=== PATIENT | male | born 1970 | race Caucasian/White ===

== ENCOUNTER 2020-08-15 06:45 | Outpatient (REF) | payer BC, SELFPAY ==
[2020-08-15 11:24] LABS: MANUAL DIFF FLAG NO
[2020-08-15 11:34] LABS: Basophils Percent Auto 0.3 % (0-2); Eosinophils Absolute Auto 0.3 X10*3/uL (0.0-0.4); Eosinophils Percent Auto 3.8 % (0-4); Hematocrit 43.3 % (42-52); Hemoglobin 14.6 g/dl (14.0-18.0); Imm Gran Abs Auto 0.02 X10*3/uL (0.00-0.03); Imm Gran Pct Auto 0.2 % (0.0-0.4); Lymphocytes Absolute Auto 2.4 X10*3/uL (1.2-4.9); Lymphocytes Percent Auto 26.9 % (20-40); Mean Corpuscular HGB Conc 33.7 g/dl (31.0-36.0); Mean Corpuscular Hemoglobin 28.4 pg (27.0-33.0); Mean Corpuscular Volume 84.2 fL (80-98); Mean Platelet Volume 11.5 fL (9.4-12.4); Monocytes Absolute Auto 0.7 X10*3/uL (0.1-1.2); Monocytes Percent Auto 8.2 % (2-11); Neutrophils Absolute Auto 5.3 X10*3/uL (2.0-8.3); Neutrophils Percent Auto 60.6 % (45-73); Platelet Count 199 X10*3/uL (160-400); Red Blood Count 5.14 X10*6/uL (4.60-5.80); Red Cell Distribution Width 12.9 % (11.0-16.0); White Blood Count 8.8 X10*3/uL (4.8-10.8)
[2020-08-15 11:40] LABS: Alanine Aminotransferase 29 U/L (0-40); Albumin Level 4.1 g/dL (3.5-5.0); Alkaline Phosphatase 95 U/L (39-117); Anion Gap 14 (12-20); Aspartate Amino Transferase 14 U/L (5-37); Bilirubin Total 0.7 mg/dL (0.0-1.0); Blood Urea Nitrogen 20 mg/dL (9-16); Calcium 8.2 mg/dL (8.4-10.2); Carbon Dioxide 28 mmol/L (22-29); Chloride 97 mmol/L (96-108); Cholesterol 126 mg/dL; Estimated Glomerular Filt Rate > 60; Glucose Fasting 199 mg/dL (60-99); HDL Cholesterol 36 mg/dL; LDL Cholesterol Calculated 66 mg/dl; Potassium 4.1 mmol/l (3.3-5.1); Sodium 135 mmol/L (135-145); Total Protein 6.3 g/dL (6.5-8.0); Triglycerides 124 mg/dL
[2020-08-15 11:42] LABS: Glucose Urine UA 250 MG/DL (NEG); Leukocyte Esterase Urine NEG (NEG); Nitrite Urine NEG (NEG); Specific Gravity - Urine >= 1.030 (1.005-1.025); Urine Blood NEG (NEG); Urine Ketones 5 MG/DL (NEG); Urine Protein TRACE MG/DL (NEG-TRACE)
[2020-08-15 11:49] LABS: Appearance Urine TURBID; Color Urine YELLOW
[2020-08-15 11:53] LABS: Estimated Average Glucose 235 mg/dL; Hemoglobin A1c % 9.8 %
[2020-08-15 11:56] LABS: Amorphous Sediment Urine 4+ /LPF; RBC Urine 0 /HPF (0); Squamous Epithelial Cell Urine TRACE /LPF; WBC Urine 0 /HPF (0-4)
[2020-08-15 12:04] LABS: Thyroid Stimulating Hormone 1.44 uIU/mL (0.32-4.0)
[2020-08-15 13:42] LABS: Creatinine Urine 235.21 mg/dL; Microalbum/Creatinine Ratio Ur 16.5 ug/mg cr
== END 2020-08-15 06:46 | disposition home or self-care (01) ==
LOC: HO.HMGCLDS 06:45
PROVIDERS: PCP Internal Medicine; Visit Provider Internal Medicine
DX: E11.9 Type 2 diabetes mellitus without complications (principal); K21.9 Gastro-esophageal reflux disease without esophagitis; E66.01 Morbid (severe) obesity due to excess calories; G47.33 Obstructive sleep apnea (adult) (pediatric)
CPT/HCPCS: 36415; 80053; 80061; 81001; 82043; 83036; 84443; 85025; 87086; 87147

== ENCOUNTER 2021-02-02 07:07 | Outpatient (REF) | payer BC, SELFPAY ==
[2021-02-02 11:54] LABS: Estimated Average Glucose 166 mg/dL; Hemoglobin A1c % 7.4 %
[2021-02-02 12:25] LABS: Alanine Aminotransferase 31 U/L (0-40); Albumin Level 4.4 g/dL (3.5-5.0); Alkaline Phosphatase 71 U/L (39-117); Anion Gap 14 (12-20); Aspartate Amino Transferase 19 U/L (5-37); Blood Urea Nitrogen 20 mg/dL (9-16); Carbon Dioxide 28 mmol/L (22-29); Chloride 98 mmol/L (96-108); Cholesterol 136 mg/dL; Estimated Glomerular Filt Rate > 60; Glucose Fasting 138 mg/dL (60-99); HDL Cholesterol 40 mg/dL; LDL Cholesterol Calculated 73 mg/dl; Potassium 4.3 mmol/L (3.3-5.1); Sodium 136 mmol/L (135-145); Total Protein 6.7 g/dL (6.5-8.0); Triglycerides 116 mg/dL
== END 2021-02-02 07:08 | disposition home or self-care (01) ==
LOC: HO.HMGCLDS 07:07
PROVIDERS: PCP Internal Medicine; Visit Provider Internal Medicine
DX: E11.9 Type 2 diabetes mellitus without complications (principal); E66.01 Morbid (severe) obesity due to excess calories
CPT/HCPCS: 36415; 80053; 80061; 83036

== ENCOUNTER 2021-06-12 07:08 | Outpatient (REF) | payer BC, SELFPAY ==
[2021-06-12 11:52] LABS: MANUAL DIFF FLAG NO
[2021-06-12 12:02] LABS: Basophils Percent Auto 0.4 % (0-2); Eosinophils Absolute Auto 0.3 X10*3/uL (0.0-0.4); Eosinophils Percent Auto 2.9 % (0-4); Hematocrit 44.8 % (42-52); Hemoglobin 15.2 g/dl (14.0-18.0); Imm Gran Abs Auto 0.03 X10*3/uL (0.00-0.03); Imm Gran Pct Auto 0.3 % (0.0-0.4); Lymphocytes Percent Auto 21.4 % (20-40); Mean Corpuscular HGB Conc 33.9 g/dl (31.0-36.0); Mean Corpuscular Hemoglobin 28.4 pg (27.0-33.0); Mean Corpuscular Volume 83.6 fL (80-98); Mean Platelet Volume 11.4 fL (9.4-12.4); Monocytes Absolute Auto 0.8 X10*3/uL (0.1-1.2); Monocytes Percent Auto 8.3 % (2-11); Neutrophils Absolute Auto 6.3 X10*3/uL (2.0-8.3); Neutrophils Percent Auto 66.7 % (45-73); Platelet Count 213 X10*3/uL (160-400); Red Blood Count 5.36 X10*6/uL (4.60-5.80); Red Cell Distribution Width 13.1 % (11.0-16.0); White Blood Count 9.5 X10*3/uL (4.8-10.8)
[2021-06-12 12:03] LABS: Appearance Urine CLOUDY; Color Urine YELLOW; Glucose Urine UA NEG (NEG); Leukocyte Esterase Urine NEG (NEG); Nitrite Urine NEG (NEG); Urine Blood NEG (NEG); Urine Ketones NEG (NEG); Urine Protein NEG (NEG-TRACE)
[2021-06-12 12:19] LABS: Estimated Average Glucose 180 mg/dL; Hemoglobin A1c % 7.9 %
[2021-06-12 12:20] LABS: Alanine Aminotransferase 27 U/L (0-40); Albumin Level 4.3 g/dL (3.5-5.0); Alkaline Phosphatase 76 U/L (39-117); Anion Gap 16 (12-20); Aspartate Amino Transferase 18 U/L (5-37); Bilirubin Total 0.9 mg/dL (0.0-1.0); Blood Urea Nitrogen 23 mg/dL (9-16); Calcium 8.9 mg/dL (8.4-10.2); Carbon Dioxide 25 mmol/L (22-29); Chloride 100 mmol/L (96-108); Cholesterol 151 mg/dL; Estimated Glomerular Filt Rate > 60; Glucose Fasting 163 mg/dL (60-99); HDL Cholesterol 38 mg/dL; LDL Cholesterol Calculated 82 mg/dl; Potassium 4.5 mmol/L (3.3-5.1); Sodium 136 mmol/L (135-145); Total Protein 6.8 g/dL (6.5-8.0); Triglycerides 156 mg/dL
[2021-06-12 12:26] LABS: Creatinine Urine 173.07 mg/dL; Microalbum/Creatinine Ratio Ur 19.6 ug/mg cr
[2021-06-12 12:41] LABS: Thyroid Stimulating Hormone 1.26 uIU/mL (0.32-4.0)
== END 2021-06-12 07:09 | disposition home or self-care (01) ==
LOC: HO.HMGCLDS 07:08
PROVIDERS: PCP Internal Medicine; Visit Provider Internal Medicine
DX: E11.9 Type 2 diabetes mellitus without complications (principal); E66.01 Morbid (severe) obesity due to excess calories; N20.0 Calculus of kidney
CPT/HCPCS: 36415; 80053; 80061; 81003; 82043; 83036; 84443; 85025

== ENCOUNTER → 2021-11-28 14:57 | Outpatient (BNVA) | payer BC, SELFPAY | PROVIDERS: PCP Internal Medicine; Visit Provider Internal Medicine | DX: G47.33 Obstructive sleep apnea (adult) (pediatric) (principal); E66.01 Morbid (severe) obesity due to excess calories; Z79.899 Other long term (current) drug therapy | CPT/HCPCS: 99202 ==

== ENCOUNTER 2021-12-24 09:40 | Outpatient (REF) | payer BC, SELFPAY ==
[2021-12-24 11:18] LABS: MANUAL DIFF FLAG NO
[2021-12-24 11:21] LABS: Appearance Urine HAZY; Color Urine YELLOW; Glucose Urine UA NEG (NEG); Leukocyte Esterase Urine NEG (NEG); Nitrite Urine NEG (NEG); Urine Blood NEG (NEG); Urine Ketones NEG (NEG); Urine Protein NEG (NEG-TRACE)
[2021-12-24 11:22] LABS: Basophils Absolute Auto 0.1 X10*3/uL (0.0-0.2); Basophils Percent Auto 0.5 % (0-2); Eosinophils Absolute Auto 0.3 X10*3/uL (0.0-0.4); Eosinophils Percent Auto 3.1 % (0-4); Hematocrit 44.6 % (42.0-52.0); Hemoglobin 15.2 g/dl (14.0-18.0); Imm Gran Abs Auto 0.04 X10*3/uL (0.00-0.03); Imm Gran Pct Auto 0.4 % (0.0-0.4); Lymphocytes Absolute Auto 1.9 X10*3/uL (1.2-4.9); Lymphocytes Percent Auto 17.1 % (20-40); Mean Corpuscular HGB Conc 34.1 g/dl (31.0-36.0); Mean Corpuscular Hemoglobin 28.4 pg (27.0-33.0); Mean Corpuscular Volume 83.4 fL (80.0-98.0); Mean Platelet Volume 11.9 fL (9.4-12.4); Monocytes Absolute Auto 0.7 X10*3/uL (0.1-1.2); Monocytes Percent Auto 6.7 % (2-11); Neutrophils Absolute Auto 7.8 x10*3/uL (2.0-8.3); Neutrophils Percent Auto 72.2 % (45-73); Platelet Count 207 X10*3/uL (160-400); Red Blood Count 5.35 X10*6/uL (4.60-5.80); Red Cell Distribution Width 13.2 % (11.0-16.0); White Blood Count 10.8 X10*3/uL (4.8-10.8)
[2021-12-24 11:36] LABS: RBC Urine 0 /HPF (0); WBC Urine 0 /HPF (0-4)
[2021-12-24 11:42] LABS: Creatinine Urine 127.92 mg/dL; Microalbum/Creatinine Ratio Ur 37.5 ug/mg cr
[2021-12-24 11:49] LABS: Alanine Aminotransferase 31 U/L (0-40); Albumin Level 4.4 g/dL (3.5-5.0); Alkaline Phosphatase 68 U/L (39-117); Anion Gap 14 (12-20); Aspartate Amino Transferase 18 U/L (5-37); Blood Urea Nitrogen 26 mg/dL (9-16); Calcium 9.5 mg/dL (8.4-10.2); Carbon Dioxide 27 mmol/L (22-29); Chloride 99 mmol/L (96-108); Cholesterol 157 mg/dL; Estimated Glomerular Filt Rate > 60; Glucose Fasting 190 mg/dL (60-99); HDL Cholesterol 40 mg/dL; LDL Cholesterol Calculated 96 mg/dl; Potassium 4.7 mmol/L (3.3-5.1); Sodium 135 mmol/L (135-145); Total Protein 6.8 g/dL (6.5-8.0); Triglycerides 106 mg/dL
[2021-12-24 11:57] LABS: Thyroid Stimulating Hormone 1.29 uIU/mL (0.32-4.0); Vitamin D 25-OH Total 41.8 ng/mL (>30)
[2021-12-24 11:58] LABS: Estimated Average Glucose 177 mg/dL; Hemoglobin A1c % 7.8 %
== END 2021-12-24 09:41 | disposition home or self-care (01) ==
LOC: HO.HMGCLDS 09:40
PROVIDERS: PCP Internal Medicine; Visit Provider Internal Medicine
DX: E11.9 Type 2 diabetes mellitus without complications (principal); G47.33 Obstructive sleep apnea (adult) (pediatric); E66.01 Morbid (severe) obesity due to excess calories; K21.9 Gastro-esophageal reflux disease without esophagitis
CPT/HCPCS: 36415; 80053; 80061; 81001; 82043; 82306; 83036; 84443; 85025

== ENCOUNTER → 2022-03-14 09:31 | Outpatient (BNVA) | payer BC, SELFPAY | PROVIDERS: PCP Internal Medicine; Referring Provider Internal Medicine; Visit Provider Internal Medicine Cardiovascular Disease | DX: R00.2 Palpitations (principal); I47.1 Supraventricular tachycardia; I10 Essential (primary) hypertension | CPT/HCPCS: 93005 ==

== ENCOUNTER 2022-03-26 10:06 | Outpatient (REF) | payer BC, SELFPAY ==
[2022-03-26 11:36] LABS: Alanine Aminotransferase 27 U/L (0-40); Albumin Level 4.6 g/dL (3.5-5.0); Alkaline Phosphatase 80 U/L (39-117); Anion Gap 15 (12-20); Aspartate Amino Transferase 18 U/L (5-37); Bilirubin Total 1.2 mg/dL (0.0-1.0); Blood Urea Nitrogen 20 mg/dL (9-16); Calcium 9.7 mg/dL (8.4-10.2); Carbon Dioxide 28 mmol/L (22-29); Chloride 101 mmol/L (96-108); Cholesterol 137 mg/dL; Estimated Glomerular Filt Rate > 60; Glucose Fasting 163 mg/dL (60-99); HDL Cholesterol 41 mg/dL; LDL Cholesterol Calculated 81 mg/dl; Potassium 4.6 mmol/L (3.3-5.1); Sodium 139 mmol/L (135-145); Total Protein 7.2 g/dL (6.5-8.0); Triglycerides 79 mg/dL
[2022-03-26 11:37] LABS: Estimated Average Glucose 154 mg/dL
[2022-03-26 11:59] LABS: Creatinine Urine 177.41 mg/dL; Microalbum/Creatinine Ratio Ur 9.5 ug/mg cr
[2022-03-26 12:00] LABS: Prostate Specific Antigen 0.31 ng/mL (<0.05-4.0)
== END 2022-03-26 10:07 | disposition home or self-care (01) ==
LOC: HO.HMGCLDS 10:06
PROVIDERS: PCP Internal Medicine; Visit Provider Urology
DX: E11.9 Type 2 diabetes mellitus without complications (principal); Z12.5 Encounter for screening for malignant neoplasm of prostate
CPT/HCPCS: 36415; 80053; 80061; 82043; 83036; 84153

== ENCOUNTER → 2022-03-27 10:05 | Outpatient (REF) | payer BC, SELFPAY | LOC: HO.SL 10:05 | PROVIDERS: PCP Internal Medicine; Visit Provider Internal Medicine | DX: E66.01 Morbid (severe) obesity due to excess calories (principal); G47.33 Obstructive sleep apnea (adult) (pediatric) | CPT/HCPCS: 95806 ==

== ENCOUNTER → 2022-04-24 12:55 | Outpatient (REF) | payer BC, SELFPAY ==
--- NOTE | 2022-04-24 12:58 | HM_ITS ---
REQUESTING PROVIDER: Myself. REASON FOR TEST: Supraventricular tachycardia. INTERPRETATION: The patient was hooked up to cardiac event monitor from 04/24/2022 to 05/24/2022 for a total period of 30 days. FINDINGS: Baseline rhythm was normal sinus with heart rate varying from 84 beats per minute to 114 beats per minute. There were episodes of PACs noted. Also short episodes of supraventricular tachycardia noted with fastest heart rate of 181 beats per minute. Also isolated PVCs noted and also one episode of 17-beat of nonsustained ventricular tachycardia, monomorphic at 170 beats per minute. The patient reported multiple episodes of fluttering or chest discomfort, which correlated to either with PVCs or PACs or short run of PSVT or nonsustained ventricular tachycardia. CONCLUSION: Event monitor report is remarkable for: 1. Baseline normal sinus rhythm. 2. Occasional isolated PACs with short runs of supraventricular tachycardia. 3. Occasional PVCs with 117-beat run of nonsustained VT at 170 beats per minute. 4. The patient reported symptoms of palpitations/fluttering as well as chest pain correlated with arrhythmias. Donaldo Aguilar MD NRS/MODL / [id number]
--- NOTE | 2022-04-24 12:58 | CA_ITS ---
Transthoracic Echocardiogram Patient (Last, First, Middle): Danny King D Gender: Male Date of : 1970 Age: 52 Procedure Date: 04/24/2022 Procedure Type: Transthoracic Echocardiogram Location: OP Height: 177.8 cm Weight: 142.88 kg BSA: 2.53 m2 Heart Rate: bpm BP: 102 / 68 mmHg Laboratory Associate: TO Referring MD: Donaldo Aguilar MD Skin Lifter Bacon: Donaldo Aguilar MD Symptoms: R00.2 - Palpitations Study Quality: Fair/Contrast ECG Rhythm: Sinus Conclusions: - Essentially normal study Findings Procedure Information Contrast agent, definity, is being given per protocol without apparent complications. Left Ventricle Normal left ventricular size, thickness, and systolic function. The visually estimated ejection fraction is between 60-65%. Spectral Doppler is indicative of a normal filling pattern. Right Ventricle Normal right ventricular cavity size and systolic function. Atria Both atria are normal in size. There is lipomatous hypertrophy of the interatrial septum. Interatrial shunt cannot be excluded. Aortic Valve Normal aortic valve structure and function. There is no aortic valve stenosis. There is no aortic valve regurgitation. Mitral Valve Normal mitral valve structure and function. There is trace mitral valve regurgitation. There is no mitral valve stenosis. Pulmonic Valve The pulmonic valve was not well visualized. Tricuspid Valve Likely normal tricuspid valve structure and function. There is trace tricuspid valve regurgitation. The right ventricular systolic pressure is normal. The right ventricular systolic pressure is 16 mmHg. Normal right atrial pressure. There is no evidence of pulmonary hypertension. Great Vessels All visible segments of the aorta are normal in size. The pulmonary artery was not well visualized. Venous The inferior vena cava is normal in size and collapses greater than 50% with inspiration. Pericardium/Pleural There is no evidence of pericardial effusion. Prior Study Comparison No significant change compared to prior study dated: 08/10/2019. Recommendations, Care & Conclusions Recommend contrast study to evaluate intracardiac shunting. Measurements 2D Linear Measurements IVSd: 1.02 0.6-0.9/0.6-1.0 cm LVIDd: 4.73 3.9-5.3/4.2-5.9 cm LVIDd Index: 1.87 2.4-3.2/2.2-3.1 cm/m2 LVIDs: 3.36 2.0-3.6 cm LVPWd: 1.00 0.7-1.1 cm LA Diam: 4.50 2.7-3.8/3.0-4.0 cm LAIDs Index: 1.78 1.5-2.3 cm/m2 LV Mass: 209.51 67-162/88-224 g LV Mass Index: 82.81 43-95/49-115 g/m2 LVOT Diam: 2.30 3.0+(-)1.3 cm 2D Systolic Function EF 4C: 67.40 >55% EF 2C: 60.70 >55% EF BiP: 63.60 >55% Mitral Valve MV Pk E: 0.96 MV PK A: 0.60 MV Decel Time: 252.00 E/A: 1.60 E'Lateral: 14.50 E'Medial: 11.20 E/E' Med: 8.50 E/E' Lat: 6.60 PHT: 74.00 MVA PHT: 2.97 Decel [place]: 3.80 Aortic Valve AoV Pk Amos: 1.45 AoV Mn Amos: 0.94 AoV VTI: 0.25 AoV Pk Grad: 8.00 Aov Mn Grad: 4.00 LALIT Cont.VTI: 3.76 LVOT LVOT Pk Amos: 1.42 LVOT Mn Amos: 0.80 LVOT VTI: 0.23 LVOT Pk Grad: 8.00 LVOT Mn Grad: 3.00 LVOT Diam: 2.30 LVOT Area: 4.15 Diastolic Function MV Pk E: 0.96 MV Pk A: 0.60 E/A: 1.60 E'Medial: 11.20 E/E' Med: 8.50 E' Laterial: 14.50 E/E' Lat: 6.60 Right Ventricle TAPSE (mm): 24.40 TVS' Amos: 16.90 Tricuspid Valve TR Pk Amos: 1.81 TR Pk Grad: 13.00 RA Press: 3.00 RVSP: 16.00 Great Vessels Aorta Sinus of Valsalva: 3.55 2.0-3.[address] [place]: 2.87 1.7-3.4 cm Ao Asc: 3.40 2.1-3.4 cm Updated in Other Vendor System with Status of Final Donaldo Aguilar MD electronically signed on 04/25/2022 9:07:13 AM with status of Final
== END ==
LOC: HO.CARD 12:55
PROVIDERS: PCP Internal Medicine; Visit Provider Internal Medicine Cardiovascular Disease
DX: R00.2 Palpitations (principal); I47.1 Supraventricular tachycardia
CPT/HCPCS: 93270; 93306; Q9957

== ENCOUNTER → 2022-05-23 09:25 | Outpatient (REF) | payer BC, SELFPAY ==
--- NOTE | ~2022-05-23 | NM_ITS ---
Exercise Myocardial perfusion study Indication: Ventricular tachycardia to evaluate for myocardial ischemia Technique: The patient was brought in for an exercise perfusion study on 05/23/2022. Patient performed exercise as per Jatinder protocol and was injected 45 mCi of sestamibi was given intravenously one target HR was achieved. Images were obtained using the SPECT gamma camera interlaced with the gating device. Images were obtained in supine position. Resting perfusion study was performed on 05/27/2022. Patient was administered 45 mCi of sestamibi intravenously at rest. Images were then obtained in supine position. Images obtained with and without CT attenuation. Total DLP 134 mGy-cm. Images were processed with the software and compared side to side in short axis, horizontal long axis and vertical long axis views. Findings: The stress perfusion study showed non attenuated images show mildly reduced uptake in the basal inferior wall of the LV function. Remainder of the LV myocardium normally perfused. Attenuation corrected images show minimal thinning of the apex of the LV myocardium.. The gated study shows normal LV systolic function with calculated LVEF of 70%. LV cavity is normal in in size. The gated study shows normal systolic wall thickening and contraction of all segments. There is no transient ischemic dilation. Resting study shows non attenuated images show moderately reduced uptake in the basal inferior and mildly reduced uptake in the mid inferior wall of the LV myocardium. Attenuation corrected images show minimal thinning of the apex of the LV myocardium.. Gating at rest reveals normal systolic wall motion with ejection fraction at 63%. The findings are consistent with normal myocardial perfusion. NM/NM cardiolite stress test Impression: 1. Normal myocardial perfusion 2. Gated LVEF is 70% 3. Transient ischemic dilatation not present Stress EKG is equivocal for ischemia
--- NOTE | 2022-05-23 09:27 | CA_ITS ---
Acquisition Time: 2022-05-23 09:31:53 Total Exercise Time: 00:08:14 Test Indications: NSVT Medications: SEE CHART Protocol: TOBIAS Max HR: 150 BPM 88% of Pred: 170 BPM Max BP: 166/068 mmHG Max Work Load: 10.1 METS Exercise stress test with exercise 8 min 14 sec of Tobias protocol, with mild sob, no chest discomfort, with isolated PAC, with normotensive response to exercise, with borderline EKG changes suggesting possible ischemia: T inversion inferiorly V4-V6 with borderline ST depression/ abnormality. Nuclear images pending. Test reviewed with Dr Aguilar Referred By: Donaldo Aguilar Overread By: FRANCISCA CASILLAS
== END ==
LOC: HO.CARD 09:25
PROVIDERS: PCP Internal Medicine; Visit Provider Internal Medicine Cardiovascular Disease
DX: I47.2 Ventricular tachycardia (principal)
CPT/HCPCS: 78452; 93017; A9500

== ENCOUNTER 2022-07-01 07:52 | Outpatient (REF) | payer BC, SELFPAY ==
[2022-07-01 11:45] LABS: Estimated Average Glucose 146 mg/dL; Hemoglobin A1c % 6.7 %
[2022-07-01 12:20] LABS: Alanine Aminotransferase 27 U/L (0-40); Albumin Level 4.3 g/dL (3.5-5.0); Alkaline Phosphatase 89 U/L (39-117); Anion Gap 16 (12-20); Aspartate Amino Transferase 19 U/L (5-37); Bilirubin Total 1.2 mg/dL (0.0-1.0); Blood Urea Nitrogen 16 mg/dL (9-16); Calcium 9.1 mg/dL (8.4-10.2); Carbon Dioxide 29 mmol/L (22-29); Chloride 99 mmol/L (96-108); Cholesterol 124 mg/dL; Estimated Glomerular Filt Rate > 60; Glucose Fasting 124 mg/dL (60-99); HDL Cholesterol 38 mg/dL; LDL Cholesterol Calculated 62 mg/dl; Potassium 4.8 mmol/L (3.3-5.1); Sodium 139 mmol/L (135-145); Total Protein 6.6 g/dL (6.5-8.0); Triglycerides 123 mg/dL
== END 2022-07-01 07:53 | disposition home or self-care (01) ==
LOC: HO.HMGCLDS 07:52
PROVIDERS: PCP Internal Medicine; Visit Provider Internal Medicine
DX: E11.9 Type 2 diabetes mellitus without complications (principal); E66.01 Morbid (severe) obesity due to excess calories
CPT/HCPCS: 36415; 80053; 80061; 83036

== ENCOUNTER → 2022-09-18 11:10 | Outpatient (BNVA) | payer BC, SELFPAY | PROVIDERS: PCP Internal Medicine; Visit Provider Internal Medicine | DX: Z13.89 Encounter for screening for other disorder (principal) ==

== ENCOUNTER 2022-12-05 13:43 | Outpatient (REF) | payer BC, SELFPAY ==
[2022-12-05 15:07] LABS: Cholesterol 116 mg/dL; HDL Cholesterol 38 mg/dL; LDL Cholesterol Calculated 64 mg/dl; Triglycerides 73 mg/dL
[2022-12-06 11:35] LABS: Anion Gap 22 (12-20); Blood Urea Nitrogen 24 mg/dL (9-16); Calcium 9.3 mg/dL (8.4-10.2); Carbon Dioxide 22 mmol/L (22-29); Chloride 100 mmol/L (96-108); Estimated Glomerular Filt Rate 57; Glucose Random 133 mg/dL (60-115); Potassium 4.9 mmol/L (3.3-5.1); Sodium 139 mmol/L (135-145)
== END 2022-12-05 13:44 | disposition home or self-care (01) ==
LOC: HO.LAB 13:43
PROVIDERS: PCP Internal Medicine; Visit Provider Internal Medicine Cardiovascular Disease
DX: E78.00 Pure hypercholesterolemia, unspecified (principal)
CPT/HCPCS: 36415; 80048; 80061

== ENCOUNTER → 2023-01-21 10:48 | Outpatient (BNVA) | payer BC, SELFPAY | PROVIDERS: PCP Internal Medicine; Visit Provider Internal Medicine ==

== ENCOUNTER 2023-08-18 15:36 | Outpatient (AMB) | payer BC, SELFPAY ==
--- NOTE | 2023-08-18 15:41 | A.OFFVIS_ITS ---
Intake Vital Signs 08/18/23 15:42 Height 5 ft 10 in Weight 316 lb BMI 45.3 BP 102/50 L Blood Pressure Location Lt brachial Position Sitting Pulse 79 Pulse Source Pulse Oximeter Pulse Oximetry (%) 98 Oxygen Delivery Method Room Air Intake Visit Reasons: Obstructive sleep apnea Intake Note: pt is here for follow up of JOHN and is doing well with supplies. Inspector Type Required: No Allergies No Known Allergies Allergy (Verified 08/18/23 15:58) Medication List - Last Reconciled 08/18/23 by Nesha Smith MD atorvastatin 80 mg PO DAILY blood sugar diagnostic ([employer] Ultra Test strips) As directed dulaglutide (Trulicity) mg subcut fluticasone propionate 50 mcg/actuation 2 sprays intranasal DAILY PRN lisinopril 10 mg PO DAILY metformin 1,000 mg PO BID metoprolol succinate ER 50 mg PO DAILY pantoprazole 40 mg PO DAILY tamsulosin 0.4 mg PO DAILY Do you need a note to return to daycare/school/sports/work: No HPI Obstructive sleep apnea HPI Details 53 YEARS OLD GENTLEMAN WITH MORBID OBESI TY AND DIAGNOSIS OF OBSTRUCTIVE SLEEP APNEA, COMES FOR HIS ROUTINE FOLLOW-UP. DOING VERY WELL WITH HIS THE CPAP, USES EVERY NIGHT EXCEPT WHEN HE FORGETS TO PUT IT ON. HE IS VERY HAPPY WITH THE CPAP USAGE, AND GETS GOOD SLEEP. WEIGHT WEBER THERE HAS BEEN NO PROGRESS RATHER HE HAS PUT ON SOME LB AGAIN. HE HAS MILD NASAL CONGESTION OFF AND ON WHICH IS CONTROLLED WITH USE OF FLONASE PFSH Medical History (Updated 08/18/23 @ 16:05 by Nesha Smith MD) Allergic rhinitis Diabetes mellitus HTN (hypertension) JOHN (obstructive sleep apnea) Morbid obesity Surgical History History of tonsillectomy History of ankle surgery History of nephrectomy, right S/P right rotator cuff repair Family History Father Enlarged heart COPD (chronic obstructive pulmonary disease) Pacemaker Cardiac defibrillator in place Brother SVT (supraventricular tachycardia) Mother Hypercholesteremia Social History Alcohol intake: current Alcohol intake frequency: a few times a month Patient Tobacco Use Status: Never used Tobacco Review of Systems Const All systems reviewed & are unremarkable except as noted in HPI and below Reports snoring Eyes Reports no additional complaints ENT Reports no additional complaints Card Denies chest pain, Denies irregular heart rhythm and Denies leg edema Resp Denies cough, Reports snoring and Denies wheezing GI Reports heartburn (GERD symptoms controlled with medicine) Reports other (Symptoms of BPH) Musc Reports no additional complaints Skin/Breast Reports system reviewed and no additional complaints, except as documented Neuro Reports no additional complaints Psych Reports no additional complaints Endo Reports no additional complaints Aller/Immun Denies wheezing Physical Exam Vital Signs: Last Vital Signs Pulse 79 08/18/23 15:42 BP 102/50 L 08/18/23 15:42 Pulse Ox 98 08/18/23 15:42 Oxygen Delivery Method Room Air 08/18/23 15:42 BMI result Body Mass Index 45.3 Const Other: Still grossly obese but has lost 30 lb since November of this year General: healthy appearing (Except for being overweight), comfortable, no acute distress, alert and awake Orientation/consciousness: patient oriented x3 HEENT Head: Yes normal to inspection General nose exam: No nasal polyps present and No nasal discharge present Face and sinus: Yes sinuses nontender Mouth: oropharynx normal Throat: No posterior oropharynx normal (Oropharynx is crowded, Mallampati class 4) Eyes General: appearance normal, both eyes and all related structures Neck Neck: Yes normal visual inspection, Yes no lymphadenopathy, Yes trachea midline, Yes no JVD and Yes other (Neck circumference 19 in) Thyroid: Thyroid normal Chest Chest palpation & inspection: normal inspection of the chest, normal palpation of entire chest wall and no tenderness Resp Effort & Inspection: normal respiratory effort Auscultation: clear to auscultation bilaterally, no crackles, no rhonchi and no wheezes Percussion: percussion normal Cardio Palpation: PMI not normal (Not palpable) Rate: regular rate Rhythm: regular rhythm Heart sounds: no gallops and no murmurs Peripheral pulses: Peripheral pulses 2+ throughout GI Palpation (GI): Soft to palpation, nontender, No hepatosplenomegaly present, no masses and Other GI palpation findings present (Abdomen is obese and protuberant) Auscultation: normal bowel sounds Back/Spine/Pelvis Thoracic/Lumbar Spine: thoracic and lumbar spine normal to inspection Skin General skin exam: no rashes or lesions noted Neuro General: patient oriented x3 and no focal motor deficits Cranial nerves: Yes CN's II-XII intact bilaterally Extrem General: Yes normal to inspection, Yes no clubbing, cyanosis or edema and Yes no calf tenderness Psych Appearance: grossly normal and well kempt Speech and movement: Normal speech and movement present Results Reviewed Results Reviewed: COMPLIANCE REPORT FOR THE LAST 90 DAYS IS REVIEWED. USED 76/90 DAYS, 84%. AVERAGE USE IT PER NIGHT 5 HOURS 6 MINUTE. PRESSURE USED IS MOSTLY 7 CM TO 8.7 CM. NO AIR LEAK. RESIDUAL AHI 0.8 Assessment & Plan Assessment & Plan (1) Morbid obesity: Comment: Chronically obese, runs in his family. Has not been in any weight management program. I discussed with him the need for losing more weight, He told me that he is trying to restrict his diet , and walking . Has lost about 36 lb of weight in the last 12 months, BUT NOW SINCE HIS LAST VISIT HE HAS GAINED ABOUT 14 LB. AGAIN HAD A DETAILED DISCUSSION WITH HIM ABOUT THE FOODS AND ALSO EXERCISE. Code(s): E66.01 - Morbid (severe) obesity due to excess calories Plan: as above (2) JOHN (obstructive sleep apnea): Comment: The diagnosis of obstructive sleep apnea was reconfirmed. He does use the CPAP device, with nasal mask, and pressure setting of 6-20 cm. ( using mostly 8.9 cms ) He is very compliant and happy about the use of CPAP. Code(s): G47.33 - Obstructive sleep apnea (adult) (pediatric) Plan: I stressed that he should use it every night , and make sure that his CPAP is on before he falls asleep. (3) Allergic rhinitis: Comment: Mild intermittent nasal congestion Code(s): J30.9 - Allergic rhinitis, unspecified Plan: Use Flonase nasal spray in each nostril once a day. Coding Level of Care Code Est Pt Level 3 (22316) Diagnoses Morbid obesity E66.01 JOHN (obstructive sleep apnea) G47.33 Allergic rhinitis J30.9
[2023-08-18 15:42] VITALS: BP 102/50; PULSE 79; O2SAT 98; BMI 45.3
== END 2023-08-18 16:00 | disposition home or self-care (01) ==
PROVIDERS: PCP Internal Medicine; Visit Provider Internal Medicine
DX: E66.01 Morbid (severe) obesity due to excess calories (principal); G47.33 Obstructive sleep apnea (adult) (pediatric); J30.9 Allergic rhinitis, unspecified
CPT/HCPCS: 99213

== ENCOUNTER → 2023-08-18 15:36 | Outpatient (BNVA) | payer BC, SELFPAY | PROVIDERS: PCP Internal Medicine; Visit Provider Internal Medicine ==

== ENCOUNTER 2023-09-05 06:02 | Outpatient (REF) | payer BC, SELFPAY ==
[2023-09-05 11:40] LABS: MANUAL DIFF FLAG NO
[2023-09-05 11:43] LABS: Basophils Percent Auto 0.5 % (0-2); Eosinophils Absolute Auto 0.4 X10*3/uL (0.0-0.4); Eosinophils Percent Auto 4.6 % (0-4); Hematocrit 44.9 % (42.0-52.0); Imm Gran Abs Auto 0.02 X10*3/uL (0.00-0.03); Imm Gran Pct Auto 0.2 % (0.0-0.4); Lymphocytes Absolute Auto 1.8 X10*3/uL (1.2-4.9); Lymphocytes Percent Auto 22.7 % (20-40); Mean Corpuscular HGB Conc 33.4 g/dl (31.0-36.0); Mean Corpuscular Hemoglobin 28.3 pg (27.0-33.0); Mean Corpuscular Volume 84.7 fL (80.0-98.0); Mean Platelet Volume 11.5 fL (9.4-12.4); Monocytes Absolute Auto 0.6 X10*3/uL (0.1-1.2); Monocytes Percent Auto 7.7 % (2-11); Neutrophils Absolute Auto 5.2 x10*3/uL (2.0-8.3); Neutrophils Percent Auto 64.3 % (45-73); Platelet Count 191 X10*3/uL (160-400); Red Cell Distribution Width 13.1 % (11.0-16.0); White Blood Count 8.1 X10*3/uL (4.8-10.8)
[2023-09-05 12:07] LABS: Appearance Urine Turbid; Color Urine Yellow; Glucose Urine UA Negative (Negative); Leukocyte Esterase Urine Trace (Negative); Nitrite Urine Negative (Negative); Specific Gravity - Urine 1.025 (1.005-1.025); UMIC TRIGGER UA YES; Urine Blood Negative (Negative); Urine Ketones Negative (Negative); Urine Protein Negative (Neg-Trace)
[2023-09-05 12:10] LABS: Bacteria Urine None Seen (None Seen); Estimated Average Glucose 131 mg/dL; Hemoglobin A1c % 6.2 % (<6.0); Hyaline Casts Urine 0-2 /LPF (0-2); RBC Urine 0-2 /HPF (0-2); WBC Urine 0-5 /HPF (0-5)
[2023-09-05 12:11] LABS: Alanine Aminotransferase 23 U/L (0-40); Albumin Level 4.1 g/dL (3.5-5.0); Alkaline Phosphatase 99 U/L (39-117); Anion Gap 11 (12-20); Aspartate Amino Transferase 19 U/L (5-37); Bilirubin Total 0.7 mg/dL (0.0-1.0); Blood Urea Nitrogen 22 mg/dL (9-16); Calcium 8.9 mg/dL (8.4-10.2); Carbon Dioxide 27 mmol/L (22-29); Chloride 102 mmol/L (96-108); Cholesterol 116 mg/dL (<200); Estimated Glomerular Filt Rate > 60; Glucose Fasting 141 mg/dL (60-99); HDL Cholesterol 35 mg/dL (>40); LDL Cholesterol Calculated 64 mg/dL (<100); Magnesium 1.9 mg/dL (1.6-2.6); Potassium 4.1 mmol/L (3.3-5.1); Sodium 136 mmol/L (135-145); Total Protein 6.8 g/dL (6.5-8.0); Triglycerides 88 mg/dL (<150)
[2023-09-05 12:18] LABS: PSA,Total (Free>4and<10) 0.35 ng/mL (0.00-4.00)
[2023-09-05 12:31] LABS: Thyroid Stimulating Hormone 0.88 uIU/mL (0.32-4.0); Vitamin D 25-OH Total 75.6 ng/mL (>30)
[2023-09-05 12:43] LABS: Creatinine Urine 163.81 mg/dL; Microalbum/Creatinine Ratio Ur 6.7 ug/mg cr (<30)
== END 2023-09-05 06:03 | disposition home or self-care (01) ==
LOC: HO.HMGCLDS 06:02
PROVIDERS: PCP Internal Medicine; Visit Provider Internal Medicine
DX: Z00.00 Encounter for general adult medical examination without abnormal findings (principal); Z12.5 Encounter for screening for malignant neoplasm of prostate; E66.01 Morbid (severe) obesity due to excess calories; E11.9 Type 2 diabetes mellitus without complications
CPT/HCPCS: 36415; 80053; 80061; 81001; 82043; 82306; 82570; 83036; 83735; 84153; 84443; 85025

== ENCOUNTER 2024-01-21 14:56 | Outpatient (AMB) | payer BC, SELFPAY ==
[2024-01-21 15:06] VITALS: BP 110/62; PULSE 70; O2SAT 97; BMI 46.2
--- NOTE | 2024-01-21 15:06 | MHC.OFFVIS ---
Vital Signs 01/21/24 15:06 Height 5 ft 10 in Weight 321 lb 13.998 oz BMI 46.2 BP 110/62 Blood Pressure Location Lt brachial Pulse 70 Pulse Source Pulse Oximeter Pulse Oximetry (%) 97 Oxygen Delivery Method Room Air Intake Visit Reasons: juan jose Intake Note: pt is here for juan jose, only missing on days when he falls asleep early. Hand Glove Cleaner Required: No Allergies No Known Allergies Allergy (Verified 01/21/24 15:33) Medication List - Last Reconciled 01/21/24 by Nesha Smith MD atorvastatin 80 mg PO DAILY blood sugar diagnostic ([employer] Ultra Test strips) As directed dulaglutide (Trulicity) mg subcut fluticasone propionate 50 mcg/actuation 2 sprays intranasal DAILY PRN lisinopril 10 mg PO DAILY metformin 1,000 mg PO BID metoprolol succinate ER 50 mg PO DAILY pantoprazole 40 mg PO DAILY tamsulosin 0.4 mg PO DAILY Do you need a note to return to daycare/school/sports/work: No HPI HPI juan jose: Details: Danny 53 years old gentleman is morbidly obese, and confirmed case of obstructive sleep apnea. He uses CPAP very regularly every night, He has missed using only on 2 nights when he went to sleep before putting on the mask. He loves his CPAP, does not get good sleep without it. No issue with the use of the CPAP . Weight brantley he has not made any progress, but is fully aware of the need to lose weight. * his brother is a dispatcher ship pilot and also uses CPAP regularly. [facility] Medical History Allergic rhinitis Diabetes mellitus HTN (hypertension) JUAN JOSE (obstructive sleep apnea) Morbid obesity Surgical History History of tonsillectomy History of ankle surgery History of nephrectomy, right S/P right rotator cuff repair Family History Father Enlarged heart COPD (chronic obstructive pulmonary disease) Pacemaker Cardiac defibrillator in place Brother SVT (supraventricular tachycardia) Mother Hypercholesteremia Social History Alcohol intake: current Alcohol intake frequency: a few times a month Patient Tobacco Use Status: Never used Tobacco Review of Systems Const All systems reviewed & are unremarkable except as noted in HPI and below Reports snoring Eyes Reports no additional complaints ENT Reports no additional complaints Card Denies chest pain, Denies irregular heart rhythm and Denies leg edema Resp Denies cough, Reports snoring and Denies wheezing GI Reports heartburn (GERD symptoms controlled with medicine) Reports other (Symptoms of BPH) Musc Reports no additional complaints Skin/Breast Reports system reviewed and no additional complaints, except as documented Neuro Reports no additional complaints Psych Reports no additional complaints Endo Reports no additional complaints Aller/Immun Denies wheezing Physical Exam Vital Signs: Last Vital Signs Pulse 70 01/21/24 15:06 BP 110/62 01/21/24 15:06 Pulse Ox 97 01/21/24 15:06 Oxygen Delivery Method Room Air 01/21/24 15:06 BMI result Body Mass Index 46.2 Const Other: Still grossly obese but has lost 30 lb since November of this year General: healthy appearing (Except for being overweight), comfortable, no acute distress, alert and awake Orientation/consciousness: patient oriented x3 HEENT Head: Yes normal to inspection General nose exam: No nasal polyps present and No nasal discharge present Face and sinus: Yes sinuses nontender Mouth: oropharynx normal Throat: No posterior oropharynx normal (Oropharynx is crowded, Mallampati class 4) Eyes General: appearance normal, both eyes and all related structures Neck Neck: Yes normal visual inspection, Yes no lymphadenopathy, Yes trachea midline, Yes no JVD and Yes other (Neck circumference 19 in) Thyroid: Thyroid normal Chest Chest palpation & inspection: normal inspection of the chest, normal palpation of entire chest wall and no tenderness Resp Effort & Inspection: normal respiratory effort Auscultation: clear to auscultation bilaterally, no crackles, no rhonchi and no wheezes Percussion: percussion normal Cardio Palpation: PMI not normal (Not palpable) Rate: regular rate Rhythm: regular rhythm Heart sounds: no gallops and no murmurs Peripheral pulses: Peripheral pulses 2+ throughout GI Palpation (GI): Soft to palpation, nontender, No hepatosplenomegaly present, no masses and Other GI palpation findings present (Abdomen is obese and protuberant) Auscultation: normal bowel sounds Back/Spine/Pelvis Thoracic/Lumbar Spine: thoracic and lumbar spine normal to inspection Skin General skin exam: no rashes or lesions noted Neuro General: patient oriented x3 and no focal motor deficits Cranial nerves: Yes CN's II-XII intact bilaterally Extrem General: Yes normal to inspection, Yes no clubbing, cyanosis or edema and Yes no calf tenderness Psych Appearance: grossly normal and well kempt Speech and movement: Normal speech and movement present Results Reviewed Results Reviewed: COMPLIANCE REPORT FOR THE LAST 30 NIGHTS IS REVIEWED. HE MISSED USING ON 2 NIGHTS OTHERWISE HAS BEEN USING VERY REGULARLY. AVERAGE USE IT PER NIGHT 6 HOURS 1 MINUTE PRESSURE USED 6.8-8.4 CM. THERE IS NO RESIDUAL OBSTRUCTIVE EVENT Assessment & Plan Assessment & Plan (1) Morbid obesity: Comment: Chronically obese, runs in his family. Has not been in any weight management program. I discussed with him the need for losing more weight, He told me that he is trying to restrict his diet , and walking . Had lost about 36 lb of weight last year but then regained about 14 lb. Now he is determined to lose weight again. Code(s): E66.01 - Morbid (severe) obesity due to excess calories Category: Medical Plan: Had a good talk with him and stressed that he has to lose weight. If he can not do on his own he should join weight management program. (2) JUAN JOSE (obstructive sleep apnea): Comment: The diagnosis of obstructive sleep apnea was reconfirmed. He does use the CPAP device, with nasal mask, and pressure setting of 6-20 cm. ( using mostly 6.8 to 8.4 cms ) He is very compliant and happy about the use of CPAP. Code(s): G47.33 - Obstructive sleep apnea (adult) (pediatric) Category: Medical Plan: Commended for good compliance and encouraged to keep on using it every night. (3) Allergic rhinitis: Comment: Mild intermittent nasal congestion Code(s): J30.9 - Allergic rhinitis, unspecified Category: Medical Plan: OK to use Flonase-52 spray in each nostril daily especially before putting on the CPAP Coding Level of Care Code Est Pt Level 3 (59752) Diagnoses Morbid obesity E66.01 JUAN JOSE (obstructive sleep apnea) G47.33 Allergic rhinitis J30.9
== END 2024-01-21 15:28 | disposition home or self-care (01) ==
PROVIDERS: PCP Internal Medicine; Visit Provider Internal Medicine
DX: E66.01 Morbid (severe) obesity due to excess calories (principal); G47.33 Obstructive sleep apnea (adult) (pediatric); J30.9 Allergic rhinitis, unspecified
CPT/HCPCS: 99213

== ENCOUNTER → 2024-01-21 14:56 | Outpatient (BNVA) | payer BC, SELFPAY | PROVIDERS: PCP Internal Medicine; Visit Provider Internal Medicine ==

== ENCOUNTER 2024-03-08 12:20 | Outpatient (AMB) | payer BC, SELFPAY ==
--- NOTE | 2024-03-08 12:33 | MHC.OFFVIS ---
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 He denies any symptoms. Ran out of metoprolol 3 months ago. He has not had any significant symptoms of palpitations, lightheadedness, syncope. Denies any exertional chest pain or shortness of breath. Taking all his medications. Uses CPAP every night and says feel valves. Blood pressure is well controlled. [facility] Medical History Allergic rhinitis Diabetes mellitus HTN (hypertension) JOHN (obstructive sleep apnea) Morbid obesity Surgical History History of tonsillectomy History of ankle surgery History of nephrectomy, right S/P right rotator cuff repair Family History Father Enlarged heart COPD (chronic obstructive pulmonary disease) Pacemaker Cardiac defibrillator in place Brother SVT (supraventricular tachycardia) Mother Hypercholesteremia Social History Alcohol intake: current Alcohol intake frequency: a few times a month Patient Tobacco Use Status: Never used Tobacco Review of Systems Const Denies chills, Denies fatigue, Denies fever(s), Denies frequent falls, Denies weakness, Denies weight gain and Denies weight loss ENT Denies dizziness Card Denies chest pain, Denies leg edema, Denies lightheadedness, Denies palpitations, Denies dyspnea, Denies dyspnea on exertion, Denies orthopnea and Denies other (loss of consciousness) Resp Denies cough, Denies dyspnea and Denies dyspnea on exertion GI Denies hematochezia and Denies change in stool character Musc Denies abnormal gait, Denies muscle weakness, Denies numbness, Denies radiating pain into limb and Denies tingling Neuro Denies Abnormal speech present, Denies abnormal gait, Denies dizziness, Denies frequent falls, Denies numbness, Denies tingling and Denies weakness Endo Denies fatigue and Denies palpitations Physical Exam Vital Signs: Last Vital Signs Pulse 89 03/08/24 12:35 BP 114/70 03/08/24 12:35 BMI result Body Mass Index 46.5 Const General: cooperative, comfortable, no acute distress, alert and awake Nutritional Appearance: obese Orientation/consciousness: patient oriented x3 Limitations: no limitations HEENT Head: Yes atraumatic Neck Neck: Yes trachea midline, Yes supple and Yes no JVD Chest Chest palpation & inspection: normal inspection of the chest Resp Effort & Inspection: normal respiratory effort Auscultation: clear to auscultation bilaterally Cardio Jugular venous distension: no JVD Palpation: normal PMI Rate: regular rate Rhythm: regular rhythm Heart sounds: S1 normal heart sound present, S2 normal heart sound present, no click, no gallops, no murmurs and no rubs GI Inspection: Yes obesity Neuro General: patient oriented x3 and no focal motor deficits Speech: No Abnormal speech present Extrem General: Yes no clubbing, cyanosis or edema Office Procedures EKG Details: EKG shows normal sinus rhythm with normal EKG [id number], Complete Assessment & Plan Assessment & Plan (1) Non-sustained ventricular tachycardia: Code(s): I47.2 - Ventricular tachycardia Category: Medical Plan: Cardiac arrhythmias with prior nonsustained ventricular tachycardia with normal structure of the heart including cardiac MRI as well as SVT. Both of them have been suppressed on metoprolol therapy. I would advised to continue metoprolol therapy at this point time. Avoidance of stimulants was discussed. Advised to call me with any worsening symptoms. No further workup is indicated at this point time. (2) CAD (coronary artery disease): Code(s): I25.10 - Atherosclerotic heart disease of [place] coronary artery without angina pectoris Category: Medical Plan: Evidence of CAD by elevated coronary calcium score. Mostly in LAD territory. No symptoms currently suggestive of ischemia. Continue aggressive risk factor modification. Continue high-intensity statin therapy. LDL is well optimized 64 mg/dL. Continue aggressive blood pressure control which is currently well optimized. Continue management of diabetes through your office goal hemoglobin A1c less than 7%. Encouraged to continue to participate in regular physical activity and weight loss program. Follow up in the clinic in 2 years time, sooner p.r.n.. Thank you for allowing me to partake in his care Medications: Refilled metoprolol succinate ER You are OVERDUE FOR APPT. PLEASE CALL [phone] TO SCHEDULE AN APPT SO WE CAN REFILL THIS MED. You can also opt to get future refills from your PCP. Thank you. 50 mg PO DAILY 90 tabs 1RF I47.2 - Ventricular tachycardia Coding Level of Care Code Est Pt Level 4 (27035) Diagnoses Non-sustained ventricular tachycardia I47.2 CAD (coronary artery disease) I25.10 CPT Codes EKG - CPT: 02910-[id number], Complete ([id number])
[2024-03-08 12:35] VITALS: BP 114/70; PULSE 89; BMI 46.5
== END 2024-03-08 12:53 | disposition home or self-care (01) ==
PROVIDERS: PCP Internal Medicine; Visit Provider Internal Medicine Cardiovascular Disease
DX: I47.20 Ventricular tachycardia, unspecified (principal); I25.10 Atherosclerotic heart disease of native coronary artery without angina pectoris
CPT/HCPCS: 93010; 99214

== ENCOUNTER → 2024-03-08 12:20 | Outpatient (BNVA) | payer BC, SELFPAY | PROVIDERS: PCP Internal Medicine; Visit Provider Internal Medicine Cardiovascular Disease | DX: I47.20 Ventricular tachycardia, unspecified (principal); I25.10 Atherosclerotic heart disease of native coronary artery without angina pectoris; Z79.899 Other long term (current) drug therapy | CPT/HCPCS: 93005 ==

== ENCOUNTER 2024-07-26 15:02 | Outpatient (AMB) | payer BC, SELFPAY ==
--- NOTE | 2024-07-26 15:06 | A.OFFVIS_ITS ---
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 Allergies No Known Allergies Allergy (Verified 07/26/24 15:19) Medication List - Last Reconciled 07/26/24 by Nseha Smith MD atorvastatin 80 mg PO DAILY blood sugar diagnostic (DeciZiumTouch Ultra Test strips) As directed dulaglutide (Trulicity) mg subcut fluticasone propionate 50 mcg/actuation 2 sprays intranasal DAILY PRN lisinopril 10 mg PO DAILY metformin 1,000 mg PO BID metoprolol succinate ER 50 mg PO DAILY pantoprazole 40 mg PO DAILY Do you need a note to return to daycare/school/sports/work: No HPI HPI Obstructive sleep apnea: Details: Danny is 54 years old, morbidly obese gentleman, case of obstructive sleep apnea. He uses CPAP very regularly every night. But in the last 2 weeks he missed using on some nights because he had common cold. Currently he has nasal mask but when his nose is congested it is difficult for him to use it. He used to have a fullface mask which worked well Anyway overall he is compliant and benefiting from the use. 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 He is losing weight slowly as he is on Trulicity injections for control of diabetes mellitus. [facility] Medical History Allergic rhinitis Diabetes mellitus HTN (hypertension) JOHN (obstructive sleep apnea) Morbid obesity Surgical History History of tonsillectomy History of ankle surgery History of nephrectomy, right S/P right rotator cuff repair Family History Father Enlarged heart COPD (chronic obstructive pulmonary disease) Pacemaker Cardiac defibrillator in place Brother SVT (supraventricular tachycardia) Mother Hypercholesteremia Social History Alcohol intake: current Alcohol intake frequency: a few times a month Patient Tobacco Use Status: Never used Tobacco Review of Systems Const All systems reviewed & are unremarkable except as noted in HPI and below Reports snoring Eyes Reports no additional complaints ENT Reports no additional complaints Card Denies chest pain, Denies irregular heart rhythm and Denies leg edema Resp Denies cough, Reports snoring and Denies wheezing GI Reports heartburn (GERD symptoms controlled with medicine) Reports other (Symptoms of BPH) Musc Reports no additional complaints Skin/Breast Reports system reviewed and no additional complaints, except as documented Neuro Reports no additional complaints Psych Reports no additional complaints Endo Reports no additional complaints Aller/Immun Denies wheezing Physical Exam Vital Signs: Last Vital Signs Pulse 89 07/26/24 15:07 BP 92/54 L 07/26/24 15:07 Pulse Ox 97 07/26/24 15:07 Oxygen Delivery Method Room Air 07/26/24 15:07 BMI result Body Mass Index 44.9 Const Other: Still grossly obese but has lost 30 lb since November of this year General: healthy appearing (Except for being overweight), comfortable, no acute distress, alert and awake Orientation/consciousness: patient oriented x3 HEENT Head: Yes normal to inspection General nose exam: No nasal polyps present and No nasal discharge present Face and sinus: Yes sinuses nontender and Yes other (Mild nasal congestion) Mouth: oropharynx normal Throat: No posterior oropharynx normal (Oropharynx is crowded, Mallampati class 4) Eyes General: appearance normal, both eyes and all related structures Neck Neck: Yes normal visual inspection, Yes no lymphadenopathy, Yes trachea midline, Yes no JVD and Yes other (Neck circumference 19 in) Thyroid: Thyroid normal Chest Chest palpation & inspection: normal inspection of the chest, normal palpation of entire chest wall and no tenderness Resp Effort & Inspection: normal respiratory effort Auscultation: clear to auscultation bilaterally, no crackles, no rhonchi and no wheezes Percussion: percussion normal Cardio Palpation: PMI not normal (Not palpable) Rate: regular rate Rhythm: regular rhythm Heart sounds: no gallops and no murmurs Peripheral pulses: Peripheral pulses 2+ throughout GI Palpation (GI): Soft to palpation, nontender, No hepatosplenomegaly present, no masses and Other GI palpation findings present (Abdomen is obese and protuberant) Auscultation: normal bowel sounds Back/Spine/Pelvis Thoracic/Lumbar Spine: thoracic and lumbar spine normal to inspection Skin General skin exam: no rashes or lesions noted Neuro General: patient oriented x3 and no focal motor deficits Cranial nerves: Yes CN's II-XII intact bilaterally Extrem General: Yes normal to inspection, Yes no clubbing, cyanosis or edema and Yes no calf tenderness Psych Appearance: grossly normal and well kempt Speech and movement: Normal speech and movement present Results Reviewed Results Reviewed: Compliance report for the last 30 nights is reviewed He has used 23/30 nights., 76 % Missed using on 7 nights, due to having nasal congestion. Average use it per night 4 hours 46 minute. Pressure setting is 6-20 cm. He is using 8.4 cm on an average. No significant air leak. And residual AHI is 0.1 Assessment & Plan Assessment & Plan (1) Morbid obesity: Comment: Chronically obese, runs in his family. Has not been in any weight management program. I discussed with him the need for losing more weight, He told me that he is trying to restrict his diet , and walking . Had lost about 36 lb of weight last year but then regained about 14 lb. He has been started on Trulicity injection for control of diabetes mellitus and this may help him to lose some weight Now he is determined to lose weight again. Code(s): E66.01 - Morbid (severe) obesity due to excess calories Category: Medical Plan: Had a good discussion about the weight and he seems to be motivated to lose. Watches his diet and remains physically active. (2) JOHN (obstructive sleep apnea): Comment: The diagnosis of obstructive sleep apnea was reconfirmed. He does use the CPAP device, with nasal mask, and pressure setting of 6-20 cm. ( using mostly 6.8 to 8.4 cms ) He is very compliant and happy about the use of CPAP. Lately he has some issues with the nasal mask due to his nasal congestion. Code(s): G47.33 - Obstructive sleep apnea (adult) (pediatric) Category: Medical Plan: I will order a fullface mask so that he can use fullface when he can not use the nasal mask . Encouraged to use it every night . (3) Allergic rhinitis: Comment: Mild intermittent nasal congestion Code(s): J30.9 - Allergic rhinitis, unspecified Category: Medical Plan: OK to use Flonase 2 spray in each nostril daily before putting on the CPAP Coding Level of Care Code Est Pt Level 3 (64873) Diagnoses Morbid obesity E66.01 JOHN (obstructive sleep apnea) G47.33 Allergic rhinitis J30.9
[2024-07-26 15:07] VITALS: BP 92/54; PULSE 89; O2SAT 97; BMI 44.9
== END 2024-07-26 15:26 | disposition home or self-care (01) ==
PROVIDERS: PCP Internal Medicine; Visit Provider Internal Medicine
DX: E66.01 Morbid (severe) obesity due to excess calories (principal); G47.33 Obstructive sleep apnea (adult) (pediatric); J30.9 Allergic rhinitis, unspecified
CPT/HCPCS: 99213

== ENCOUNTER 2024-09-22 15:35 | Outpatient (AMB) | payer BC, SELFPAY ==
--- NOTE | 2024-09-22 15:54 | A.OFFPC_ITS ---
Vital Signs 09/22/24 15:59 Height 5 ft 9.5 in Weight 298 lb BMI 43.4 BP 118/64 Pulse 81 Pulse Source Pulse Oximeter Temp 97.3 F Pulse Oximetry (%) 97 Intake Visit Reasons: physical Intake Note: here for a physical no other complaints Allergies No Known Allergies Allergy (Verified 09/22/24 15:58) Medication List - Last Reconciled 09/22/24 by Shaniqua Hodge PA-C atorvastatin 80 mg PO DAILY azithromycin For 250 mg dose pack: take 500 mg today (day 1), then 250 mg for 4 days (days 2-5) PO blood sugar diagnostic ([employer] Ultra Test strips) As directed dulaglutide (Trulicity) mg subcut fluticasone propionate 50 mcg/actuation 2 sprays intranasal DAILY PRN lisinopril 10 mg PO DAILY metformin 1,000 mg PO BID metoprolol succinate ER 50 mg PO DAILY pantoprazole 40 mg PO DAILY PFSH Medical History Allergic rhinitis Diabetes mellitus HTN (hypertension) JOHN (obstructive sleep apnea) Morbid obesity Surgical History History of tonsillectomy History of ankle surgery History of nephrectomy, right S/P right rotator cuff repair Family History Father Enlarged heart COPD (chronic obstructive pulmonary disease) Pacemaker Cardiac defibrillator in place Brother SVT (supraventricular tachycardia) Mother Hypercholesteremia Social History Alcohol intake: current Alcohol intake frequency: a few times a month Patient Tobacco Use Status: Never used Tobacco Physical exam (Primary Care) Care Plan Goal for BP management: Blood pressure 118/64 today. Patient not go for blood pressure currently on lisinopril, metoprolol taking as prescribed will continue regimen. BMI Assessment/Plan discussion: High BMI High, discussed plan: lifestyle, weight reduction, dietary, physical activity and alcohol moderation Tobacco/Smoking Status: Tobacco use Status Patient Tobacco Use Status Never used Tobacco 09/22/24 15:55 Coding Level of Care Code Est Pt Prev Care 40-64y(16576) Diagnoses Physical exam Z00.00 HTN (hypertension) I10 Diabetes type 2 E11.9 Allergic rhinitis J30.9 CAD (coronary artery disease) I25.10 Non-sustained ventricular tachycardia I47.2 SVT (supraventricular tachycardia) I47.1 JOHN (obstructive sleep apnea) G47.33 Morbid obesity E66.01 Upper respiratory infection J06.9 Assessment & Plan Assessment & Plan (1) Physical exam: Code(s): Z00.00 - Encounter for general adult medical examination without abnormal findings Category: Medical Plan: Normal physical exam today. (2) HTN (hypertension): Code(s): I10 - Essential (primary) hypertension Category: Medical Plan: Blood pressure at goal. Will continue regimen of lisinopril, metoprolol. Condition is chronic and stable. Will continue to monitor. (3) Diabetes type 2: Code(s): E11.9 - Type 2 diabetes mellitus without complications Category: Medical Plan: Patient currently on metformin 1000 mg b.i.d. and Trulicity 30 units weekly. Taking as prescribed. A1c level done in 08/27/2023 6.2. Patient reports he has endocrinology at [facility] Dr. Magana who recently did an A1c level in the past few weeks which was 6.3. Will attempt to retain these records. Condition is chronic and stable will continue on same regimen. (4) Allergic rhinitis: Comment: Mild intermittent nasal congestion Code(s): J30.9 - Allergic rhinitis, unspecified Category: Medical Plan: Patient reports chronic allergic rhinitis. Condition is chronic and stable. Will continue to monitor. (5) CAD (coronary artery disease): Code(s): I25.10 - Atherosclerotic heart disease of [place] coronary artery without angina pectoris Category: Medical Plan: Patient denies any cardiac related complaints today. Condition is chronic and stable will continue to monitor. (6) Non-sustained ventricular tachycardia: Code(s): I47.2 - Ventricular tachycardia Category: Medical Plan: Patient denies any cardiac related complaints today. Condition is chronic and stable will continue to monitor. (7) SVT (supraventricular tachycardia): Code(s): I47.1 - Supraventricular tachycardia Category: Medical Plan: Patient denies any cardiac related complaints today. Condition is chronic and stable will continue to monitor. (8) JOHN (obstructive sleep apnea): Comment: The diagnosis of obstructive sleep apnea was reconfirmed. He does use the CPAP device, with nasal mask, and pressure setting of 6-20 cm. ( using mostly 6.8 to 8.4 cms ) He is very compliant and happy about the use of CPAP. Lately he has some issues with the nasal mask due to his nasal congestion. Code(s): G47.33 - Obstructive sleep apnea (adult) (pediatric) Category: Medical Plan: Patient utilizing CPAP daily. Reports he is sleeping well and waking up feeling rested. Condition is chronic and stable will continue to monitor. (9) Morbid obesity: Comment: Chronically obese, runs in his family. Has not been in any weight management program. I discussed with him the need for losing more weight, He told me that he is trying to restrict his diet , and walking . Had lost about 36 lb of weight last year but then regained about 14 lb. He has been started on Trulicity injection for control of diabetes mellitus and this may help him to lose some weight Now he is determined to lose weight again. Code(s): E66.01 - Morbid (severe) obesity due to excess calories Category: Medical Plan: Patient educated on diet and exercise. Condition is chronic and stable will continue to monitor. (10) Upper respiratory infection: Code(s): J06.9 - Acute upper respiratory infection, unspecified Category: Medical Plan: Upper respiratory infection. No evidence of pneumonia. Patient will be prescribed Z-Raymundo. Condition is stable will continue to monitor and reassess. Plan Plan - Continue current regimen of metformin and Trulicity for type 2 diabetes mellitus management. - Review CPAP compliance and continue for obstructive sleep apnea. - Consider booking a follow-up with urology for management of hypogonadism and erectile dysfunction. - Monitor cardiac status; no new interventions necessary currently for tachycardia. - Continue current management with tadalafil for benign prostatic hyperplasia. - Evaluate and manage any additional symptoms of the upper respiratory infection; antibiotics considered if symptoms persist. - Routine fasting blood work to monitor diabetes and lipid profile. - Schedule colonoscopy for familial history of colon cancer, if not already planned. Orders: Orders Complete Blood Count Auto Diff Today Z00.00 - Encounter for general adult medical examination without abnormal findings Comprehensive [place]. Panel Fast Today E11.9 - Type 2 diabetes mellitus without complications, I25.10 - Atherosclerotic heart disease of [place] coronary artery without angina pectoris, Z00.00 - Encounter for general adult medical examination without abnormal findings Liver Panel Today E11.9 - Type 2 diabetes mellitus without complications, Z00.00 - Encounter for general adult medical examination without abnormal findings Hemoglobin A1c Today E11.9 - Type 2 diabetes mellitus without complications, Z00.00 - Encounter for general adult medical examination without abnormal findings Vitamin B12 and Folate Today E11.9 - Type 2 diabetes mellitus without complications, Z00.00 - Encounter for general adult medical examination without abnormal findings Vitamin D 25-OH Total Today E11.9 - Type 2 diabetes mellitus without complications, I10 - Essential (primary) hypertension, Z00.00 - Encounter for general adult medical examination without abnormal findings Lipid Panel Today E11.9 - Type 2 diabetes mellitus without complications, Z00.00 - Encounter for general adult medical examination without abnormal findings Magnesium Today E11.9 - Type 2 diabetes mellitus without complications, Z00.00 - Encounter for general adult medical examination without abnormal findings PSA,Total (Free>4and<10) Today E11.9 - Type 2 diabetes mellitus without complications, Z00.00 - Encounter for general adult medical examination without abnormal findings TSH reflex Free T4 Today E11.9 - Type 2 diabetes mellitus without complications, Z00.00 - Encounter for general adult medical examination without abnormal findings Microalbumin, Random (w Creat) Today E11.9 - Type 2 diabetes mellitus without complications Medications: New azithromycin For 250 mg dose pack: take 500 mg today (day 1), then 250 mg for 4 days (days 2-5) PO 6 tabs 0RF Patient Instructions: Patient Instructions - Continue current diabetes and cholesterol medications as prescribed. - Adhere to consistent CPAP machine use for sleep apnea management. - Return for follow-up blood work as discussed. - Seek urology consultation if ED symptoms remain bothersome. - Monitor respiratory symptoms and contact the office if symptoms worsen. - Prepare for fasting before blood tests, avoiding food and only consuming water and black coffee 12 hours before. Scribe Plan - Not visible on output: History of Present Illness The patient is a 54-year-old male presenting for physical exam. In addition patient would like to discuss management of type 2 diabetes mellitus and review of recent health status. The patient has a known history of type 2 diabetes mellitus, controlled with metformin 1000 mg taken twice daily, and Trulicity. The patient reports an A1c level of 7 from a recent endocrinological evaluation, which has since improved upon medication adjustment. Additionally, the patient uses a CPAP device daily, reporting excellent sleep without residual tiredness, to manage obstructive sleep apnea. The patient notes ongoing hypogonadism, with erectile dysfunction still present, but has not followed up with urology for this condition since the COVID pandemic. The patient has had a history of kidney stones approximately two to three years ago without subsequent recurrence and a past nephrectomy due to an atrophic kidney discovered incidentally. Additionally, the patient has a history of tachycardia, although he currently reports no symptoms. Benign prostatic hyperplasia has been managed with tadalafil. The patient also mentions experiencing an upper respiratory tract infection, initially presenting as a head cold and possible progression to bronchitis, given his history of recurrent bronchitis and since stopping smoking about 20 years ago after a pack per day habit. Social History - Previously smoked one pack per day; quit approximately 20 years ago. - Drinks alcohol occasionally, but not daily; estimates one drink per week. 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 Review of Systems - Constitutional: Denies fatigue. - Respiratory: Reports recent cold symptoms and possible respiratory infection. - Cardiovascular: Denies palpitations or tachycardia. - Gastrointestinal: Denies bowel issues. - Genitourinary: Reports ongoing erectile dysfunction. - Neurological: Denies headaches. - Sleep: Reports excellent sleep quality with CPAP use. Physical Exam Appearance: Alert. Oriented X3. No acute distress. Head: Normal external exam. Normocephalic. Atraumatic. Eyes: Pupils are equal, round, and reactive to light. Extraocular movements intact. Conjunctiva and sclera normal. Eyelids normal. Ears: External auditory canal normal. Tympanic membranes normal. Throat: Pharynx normal. Uvula midline. Moist mucous membranes. Neck: Normal inspection. Neck supple. Full range of motion. No adenopathy. Thyroid Normal. No meningeal signs. No neck mass noted. Cardiovascular: Normal heart rate and rhythm. Heart sound normal. No murmurs noted. Pulses normal throughout. Respiratory: No respiratory distress. Painless inspiration. Breath sounds normal. No wheezes/rales/rhonchi noted. Chest nontender. No accessory muscle usage noted or decreased air movement noted. Abdomen: Soft and nontender. Bowel sounds normal in all 4 quadrants. No distention noted. No organomegaly noted. No visible injury noted. Back: No costovertebral angle tenderness. Full range of motion noted. Skin: Skin warm and dry. Normal skin color. Normal skin turgor. No rashes/lesions/lacerations noted. Extremities: No lower extremity edema. Extremities exhibit normal range of motion. Extremities nontender. Neuro: Oriented X 3. No motor deficit. No sensory deficit. Reflexes normal. Results - Labs: CBC, chemistry panel within normal limits; glucose 141, A1c 6.2; TSH, vitamin D levels normal. - Cholesterol panel: Total cholesterol 116, LDL 64. Plan - Continue current regimen of metformin and Trulicity for type 2 diabetes melli ades management. - Review CPAP compliance and continue for obstructive sleep apnea. - Consider booking a follow-up with urology for management of hypogonadism and erectile dysfunction. - Monitor cardiac status; no new interventions necessary currently for tachycardia. - Continue current management with tadalafil for benign prostatic hyperplasia. - Evaluate and manage any additional symptoms of the upper respiratory infection; antibiotics considered if symptoms persist. - Routine fasting blood work to monitor diabetes and lipid profile. - Schedule colonoscopy for familial history of colon cancer, if not already planned. Patient was informed and verbally consented to the use of an ambient scribe for clinic note documentation during this visit. Discussion Notes During this visit, I discussed with the patient his current management for type 2 diabetes mellitus, emphasizing the importance of maintaining an A1c below 7. We talked about continuing his metformin and Trulicity therapy and checking his blood glucose periodically. I underscored the necessity of consistent CPAP device usage for obstructive sleep apnea, which the patient is currently compliant with and experiencing good sleep quality. For the hypogonadism and associated erectile dysfunction, I recommended considering follow-up care with urology, which remains necessary after a pause in care due to the pandemic. The discussion also included an action plan for monitoring cardiovascular health given his tachycardia history and reaffirming the importance of tadalafil in managing benign prostatic hyperplasia symptoms. We reviewed his symptom presentation suggesting a minor upper respiratory tract infection and will consider further evaluation if respiratory symptoms persist. Patient Instructions - Continue current diabetes and cholesterol medications as prescribed. - Adhere to consistent CPAP machine use for sleep apnea management. - Return for follow-up blood work as discussed. - Seek urology consultation if ED symptoms remain bothersome. - Monitor respiratory symptoms and contact the office if symptoms worsen. - Prepare for fasting before blood tests, avoiding food and only consuming water and black coffee 12 hours before.
[2024-09-22 15:59] VITALS: BP 118/64; PULSE 81; TEMP 36.3; O2SAT 97; BMI 43.4
--- OUTSIDE RECORDS SUMMARY | 2024-09-22 18:22 | XMS_ITS | Continuity of Care Document ---
Author Organization [facility] [address] [place] [address] Phone [phone] Care Team Providers Care Courtesy Driver Name Role Phone Kanu Montejo M.D. Care Team Information Recei shiva [phone] Problems Active Problems Provider Date Type 2 diabetes mellitus Gonzalo Varner M.D. O nset: 05/20/2022 Essential hypertension Gonzalo Varner M.D. Ons et: 05/20/2022 Hypercholesterolemia Gonzalo Varner M.D. Onset : 05/20/2022 Obesity Gonzalo Varner M.D. Onset: 08/2022 Gastroesophageal reflux disease Gonzalo Vraner M.D. Onset: 05/20/2022 Social History Type Date Description Comments Sex Unknown Tobacco Use Start: Unknown End: Unknown Quit 1994 Smoking Status Reviewed: 04/21/23 Quit 1994 ETOH Use Occasionally consumes alcoho l Allergies and adverse reactions Description No Known Drug Allergies Medications Active Medications SIG Qnty Indications Order ing Provider Date Trulicity1.5mg/0.5M L Solution Pen-Inject inject 1.5mg subcutaneously every week dx: e11.9 2ml E11Kacey Huston M.D. 04/01/2024 E78.00 Feyffgvac6le/0.5ML Solution Auto-Inject Inject 3 MG Subcutaneously MG Once A Week 2units Jeff Epstein M.D. 03/26/2024 Freestyle Dai 3/Sensor/Glucose Monitoring [id number] Misc use as directed dx:e11.9 3units E11.9 Narcisa Huston M.D. 03/26/2024 E66.9 Fluticasone Gahrydgljx20kke/Act Suspension instill 1 sprays (100mcg) in each nostril once daily in the morning (for allergies) 16units Gonzalo Varner M.D. 05/20/2022 Flomax0.4mg Capsules 1 every day Peng Varner M.D. 05/20/2022 Metformin [id number] Tablets 1 tab by hodan twice a day 60tabs Kanu Montejo M.D. Bigjesqqhu12oc Tablets 1 by mouth every day Kanu Montejo M.D. Metoprolol Succinate ER25mg Tablets ER 24HR Take 1 Tablet By Mouth Every Day Donaldo Aguilar MD Atorvastatin Hdmiois78rb Tablets Take 1 Tablet By Mouth Every Day Donaldo Aguilar MD Pantoprazole Vxlozc62zv Tablets DR Take 1 Tablet By Mouth Every Day Kanu Montejo M.D. Vital Signs Date Vital Result Comment 06/29/2024 3:50pm BP Systolic 102 mmHg BP Diastolic 60 mmHg Heart Rate 96 /min Height 70 inches 5'10 Weight 306.00 lb BMI (Body Mass Index) 43.9 kg/m2 Results Test Acquired Date Facility Test Result H/L Range N ote Albumin/Creatini ne Ratio, Random Urine 06/29/2024 [facility] Creatinine, Urine 124.9 mg/dL Not Estab. Albumin, Urine <3.0 ug/mL Not Es tab. Alb/Creat Ratio <2 mg/gcreat 0-29 1 Laboratory test finding 06/29/2024 Inhouse Glucose Fingerstick 109 Hemoglobin A1c 6.7% Laboratory test finding 03/26/2024 Inhouse Glucose Fingerstick 215 Hemoglobin A1c 7.8% Laboratory test finding 11/24/2023 Inhouse Glucose Fingerstick 116 Hemoglobin A1c 6.8% Laboratory test finding 07/24/2023 Inhouse Glucose Fingerstick 117 Hemoglobin A1c 6.6% Laboratory test finding 04/21/2023 Inhouse Glucose Fingerstick 189 Hemoglobin A1c 6.4% Laboratory test finding 12/17/2022 Inhouse Glucose Fingerstick 105 Hemoglobin A1c 6.3% Laboratory test finding 05/20/2022 Inhouse Glucose Fingerstick 123 1 Normal: 0 - 29 Moderately increased: 30 - 300 Severely increased: >300 Medical Devices Description No Information Available Encounters Type Date Location Provider Dx Diagnosis Office Visit 03/26/2024 8:00a Main Office MARY Iqbal E11.9 Type 2 diabet es mellitus without complications Assessments Date Code Description Provider 06/29/2024 E11.9 Type 2 diabetes mellitus wit hout complications MARY Iqbal 06/29/2024 I10 Essential hypertension MARY Galloway 06/29/2024 E78.00 Hypercholesterolemia MARY Iqbal Plan of Treatment Future Appointment(s):* 10/22/2024 3:15 pm - MARY Iqbal at Main Office 06/29/2024 - MARY Iqbal* E11.9 Type 2 diabetes mellitus without complications * I10 Essential hypertension * E78.00 Hypercholesterolemia Functional Status Description No Information Available Mental Status Description No Information Available Referrals Description No Information Available
== END 2024-09-22 16:23 | disposition home or self-care (01) ==
LOC: HO.HMCSH 15:35
PROVIDERS: PCP Internal Medicine; Visit Provider Physician Assistant Medical
DX: Z00.00 Encounter for general adult medical examination without abnormal findings (principal); I10 Essential (primary) hypertension; E11.9 Type 2 diabetes mellitus without complications; J30.9 Allergic rhinitis, unspecified; I25.10 Atherosclerotic heart disease of native coronary artery without angina pectoris; I47.20 Ventricular tachycardia, unspecified; I47.10 Supraventricular tachycardia, unspecified; G47.33 Obstructive sleep apnea (adult) (pediatric); E66.01 Morbid (severe) obesity due to excess calories; J06.9 Acute upper respiratory infection, unspecified

== ENCOUNTER → 2024-09-22 15:35 | Outpatient (BNVA) | payer BC, SELFPAY | PROVIDERS: PCP Internal Medicine; Visit Provider Physician Assistant Medical ==

== ENCOUNTER 2024-10-30 07:44 | Outpatient (REF) | payer BC, SELFPAY ==
--- OUTSIDE RECORDS SUMMARY | 2024-10-30 07:47 | XMS_ITS ---
Author Organization Kanu Montejo DO, FAC Address [address] [place], [place] [id number] Care Team Providers Care Continuous Churn Buttermaker Name Role Phone Kanu Montejo Primary Care Provider [phone] ALLERGIES No Known Allergies REASON FOR VISIT 6 month f/u, Follow up Type 2 diabetes mellitus without complication, without long-term current useof insulin MEDICATIONS Medication SIG (Take, Route, Frequency, Duration) Notes Start Date End Date Status Lisinopril 10 MG 1 tablet Orally Once a day Active Metoprolol Succinate ER 50 MG 1 tablet Orally Once a day A ctive metFORMIN HCl 1000 MG 1 tablet with a me al Orally Twice a day Active Atorvastatin Calcium 40 MG 1 tablet Orally Once a day Active Tamsulosin HCl 0.4 MG 1 capsule Orally O nce a day for 90 days Active Pantoprazole Sodium 40 MG 1 tablet Orally Once a day Active OneTouch Ultra - USE DIRECTED ONCE DAILY. Active Trulicity 1.5 MG/0.5ML 1.5 mg Subcutaneo us Once a week Active Fluticasone Propionate 50 MCG/ACT 1 spray in each nostril as needed Nasally Once a day for 30 days Active SOCIAL HISTORY Tobacco Use: Social History Observation Description Date Details (start date - stop date) Former Smoker NA - NA Sex Assigned At : Social History Observation Description Sex Assigned At Unknown Tobacco Use/Smoking Question Answer Notes Patient is a former smoker How long has it been since y ou last smoked? > 10 years Additional Findings: Tobacco User Curren t non-smoker, currently using other form(s) of tobacco Alcohol Screen Question Answer Notes Did you have a drink contain ing alcohol in the past year? Yes How often did you have a dri nk containing alcohol in the past year? 2 to 4 times a month (2 points) How many drinks did you have on a typical day when you were drinking in the past year? 1 or 2 drinks (0 point) How often did you have 6 or more drinks on one occasion in the past year? Never (0 point) Points 2 Interpretation Negative VITAL SIGNS BMI 46.30 kg/m2 03/10/2024 Blood pressure systolic 110 mm Hg 03/10/20 24 Blood pressure diastolic 60 mm Hg 024 Height 70.25 in 03/10/2024 Weight 325 lbs 03/10/2024 Encounters Encounter Location Date Provider Diagnosis Kanu Montejo DO, [address] [id number] 03/10/2024 Kanu Montejo Type 2 diabetes sarthak itus without complication, without long-term current use of insulin E11.9 ; NSVT (nonsustained ventricular tachycardia) I47.29 ; Gastroesophageal reflux disease without esophagitis K21.9 ; JOHN (obstructive sleep apnea) G47.33 and Renal lithiasis N20.0 ASSESSMENTS Encounter Date Diagnosis Assessment Notes Treatment Notes Treatment Clinical Notes 03/10/2024 Type 2 diabetes mellitus without complication, without long-term current use of insulin (ICD-10 - E11.9) Follow up with Endocrinology 03/10/2024 NSVT (nonsustained ventricular tachycardia) (ICD-10 - I47.29) 03/10/2024 Gastroesophageal reflux disease without esophagitis (ICD-10 - K21.9) 03/10/2024 JOHN (obstructive sle ep apnea) (ICD-10 - G47.33) CPAP nightly. Compliance is very good. 03/10/2024 Renal lithiasis (ICD-10 - N20.0) PLAN OF TREATMENT Medication Medication Name Sig Start Date Stop Date Notes Lisinopril 10 MG 1 tablet Orally Once a day Metoprolol Succinate ER 50 MG 1 tablet Orally Once a day metFORMIN HCl 1000 MG 1 tablet with a me al Orally Twice a day Atorvastatin Calcium 40 MG 1 tablet Orally Once a day Tamsulosin HCl 0.4 MG 1 capsule Orally O nce a day for 90 days Pantoprazole Sodium 40 MG 1 tablet Orally Once a day OneTouch Ultra - USE DIRECTED ONCE DAILY. Trulicity 1.5 MG/0.5ML 1.5 mg Subcutaneo us Once a week Fluticasone Propionate 50 MCG/ACT 1 spray in each nostril as needed Nasally Once a day for 30 days Treatment Notes Assessment Notes Type 2 diabetes mellitus wit hout complication, without long-term current use of insulin Follow up with Endocrinology JOHN (obstructive sleep apnea) CPAP night ly. Compliance is very good. Next Appt Details Follow Up: 6 Months, Reason: H&P Progress Notes * Examination Category Sub-Category Detail Notes General Examination GENERAL APPEARANCE: in no ac [place] distress, well developed, well nourished HEAD: normocephalic, atrau matic HEART: no murmurs, regular rate and rhythm, S1, S2 normal LUNGS: clear to auscultatio n bilaterally ABDOMEN: normal, bowel sounds present, soft, nontender, nondistended SKIN: warm and dry EXTREMITIES: no edema PSYCH: alert, oriented, cog nitive function intact
--- OUTSIDE RECORDS SUMMARY | 2024-10-30 07:47 | XMS_ITS | Patient Health Record ---
Author Organization [facility] Address [address] [place] [address] Care Team Providers Care Parcel Post Clerk Name Role Phone Kanu Montejo MD Primary Care Provider Unavail able Barron Roche Unavailable [phone] Reason For Referral No Information Medications Medication SIG (Take, Route, Frequency, Duration) Notes Start Date End Date Status Protonix 40 MG 1 tablet Orally Once a day Unknown Lisinopril 20 MG 1 tablet Orally Once a day Unknown Pantoprazole Sodium 40 MG TAKE 1 TABLET BY MOUTH DAILY Oral for 90 Days Active Metoprolol Succinate 50 MG 1 capsule Ora lly Once a day Active Tamsulosin HCl 0.4 MG 1 capsule Orally O nce a day Active Lipitor Unknown metFORMIN HCl 500 MG 1 tablet with meals Orally Twice a day Active Trulicity 0.75 MG/0.5ML as directed Subcutaneous Active Atorvastatin Calcium 80 MG 1 tablet Oral ly Once a day Active Lisinopril 10 MG 1 tablet Orally Once a day Active Immunizations Vaccine Route Administration Date Status Comme nts Influenza Unknown 06/27/2016 Administered Social History Alcohol Screen Question Answer Notes Did you have a drink containing alcohol in the p ast year? Yes Points 0 Interpretation Negative Tobacco use other than smoking: Question Answer Notes Are you an other tobacco user? No Problems Problem Type SNOMED Code ICD Code Onset Dates Problem Status W/U Status Risk Notes Problem [id number] Plantar fasciitis, bilateral (M72.2) Active confirmed Dx New problem, Prognosis Uncertain (4) Plan Of Treatment Pending Test Test Name Order Date X ray : Foot, left 3V 06/06/2023 X ray : Foot, left 3V 07/04/2016 X ray : Foot, right 3V 06/06/2023 [id number] SKIN LESIONS, 2 TO 4 07/04/20 16 [id number] NAIL(S) 07/04/2016 Insurance Providers Payer Name Payer Address Payer Phone Subscriber Number Group Number Insured Name Patient Relationship to Insured Coverage Start Date Coverage End Date Hieu Navarro [address] [place] [address] [id number] Danny King Self - patient is the insured Medical (General) History Medical History History ICD Code Broken bones type II diabetes Kidney disease Warts Chicken pox Arthritis covid-19 Diabetic High blood pressure Reflux ( GERD) Surgical History Surgery Date(Month/Year) Rt kidney removed 09/2009 Ankle sx 09/1985 Rotator Cuff 2014
--- OUTSIDE RECORDS SUMMARY | 2024-10-30 07:47 | XMS_ITS ---
Author Organization Kanu Montejo DO, FACP Address [address] [place], [place] [id number] Care Team Providers Care Speeder Machine Operator Name Role Phone Gustabo Kanu Primary Care Provider [phone] REASON FOR VISIT Message MEDICATIONS Medication SIG (Take, Route, Fr equency, Duration) Notes Start Date End Date Status Azithromycin 250 MG 2 tablets on the fir st day, then 1 tablet daily for 4 days Orally Once a day for 5 day(s) 06/08/2024 Active Encounters Encounter Location Date Provider Diagnosis BILL Hernandez DO[address] [id number] 06/08/2024 Kanu Montejo PLAN OF TREATMENT Medication Medication Name Sig Start Date Stop Date Notes Azithromycin 250 MG [address] day, then 1 tablet daily for 4 days Orally Once a day for 5 day(s) 06/08/2024
--- OUTSIDE RECORDS SUMMARY | 2024-10-30 07:47 | XMS_ITS | Continuity of Care Document ---
Author Organization [facility] [address] [place] [address] Phone [phone] Care Team Providers Care Research And Development Scientist Name Role Phone Kanu Montejo M.D. Care Team Information Recei shiva [phone] Problems Active Problems Provider Date Type 2 diabetes mellitus Gonzalo Varner M.D. O nset: 05/20/2022 Essential hypertension Gonzalo Varner M.D. Ons et: 05/20/2022 Hypercholesterolemia Gonzalo Varner M.D. Onset : 05/20/2022 Obesity Gonzalo Varner M.D. Onset: 08/2022 Gastroesophageal reflux disease Gonzalo Varner M.D. Onset: 05/20/2022 Social History Type Date [...] e11.9 2ml E11Kacey Huston M.D. 04/01/2024 E78.00 Gstkyxiap1ge/0.5ML Solution Auto-Inject Inject 3 MG Subcutaneously MG Once A Week 6ml E11.9 Jeff Epstein M.D. 03/26/2024 Freestyle Dai 3/Sensor/Glucose Monitoring Iajhnk9Wpcsev Misc use as directed dx:e11.9 3units E11.9 Narcisa Huston M.D. 03/26/2024 E66.9 Fluticasone Tdkqgvjfau37ylv/Act Suspension instill 1 sprays (100mcg) in each nostril once daily in the morning (for allergies) 16units Gonzalo Varner M.D. 05/20/2022 Flomax0.4mg Capsules 1 every day Peng Varner M.D. 05/20/2022 Metformin [id number] Tablets 1 tab by hodan th twice a day 60tabs Kanu Montejo M.D. Fmhdqjoqpz74cr Tablets 1 by mouth every day Kanu Montejo M.D. Metoprolol Succinate ER25mg Tablets ER 24HR Take 1 Tablet By Mouth Every Day Donaldo Aguilar MD Atorvastatin Tbfnfmr11hm Tablets Take 1 Tablet By Mouth Every Day Donaldo Aguilar MD Pantoprazole Dafsbd72kj Tablets DR Take 1 Tablet By Mouth [...] MARY Iqbal Plan of Treatment Future Appointment(s):* 12/16/2024 3:30 pm - MARY Iqbal at Main Office 06/29/2024 - MARY Iqbal* E11.9 Type 2 diabetes mellitus without complications * I10 Essential hypertension * E78.00 Hypercholesterolemia Functional Status Description No Information Available Mental Status Description No Information Available Referrals Description No Information Available
--- OUTSIDE RECORDS SUMMARY | 2024-10-30 07:48 | XMS_ITS ---
Author Organization [facility] Address [address] [place] [address] Care Team Providers Care Snailer Name Role Phone Kanu Montejo MD Primary Care Provider Unavail Barron Newsome Unavailable [phone] REASON FOR VISIT same day cx 09/09/23 Encounters Encounter Location Date Provider Diagnosis [facility] [address] [place] [address] 09/09/2023 Barron Roche Plan Of Treatment No Information Progress Notes * Danny THOMPSON DDOB:[birth year] (53 yo M)Acc No.[id number]:09/09/2023 Patient:?Danny Thompson :1970???Age:53 Y???Sex:Male Address:[address] [place] [address], [address] * true * Date:? Generated for Littlei fritz/Alma/eTransmitting on:?10/30/2024 07:47 AM EST
--- OUTSIDE RECORDS SUMMARY | 2024-10-30 07:48 | XMS_ITS ---
Author Organization [facility] Address [address] [place] [address] Care Team Providers Care Search Consultant Name Role Phone Gustabo SOLER, Kanu Primary Care Provider Unavail Barron Newsome Unavailable [phone] Encounters Encounter Location Date Provider Diagnosis [address] [address] 09/09/2023 Barron Roche Plan Of Treatment No Information Progress Notes * Danny THOMPSON DDOB:[birth year] (54 yo M)Acc No.[id number]:09/09/2023 Progress Note Patient:?Danny THOMPSON Provider:?Barron Roche DPM :1970???Age:53 Y???Sex:Male Carter e:09/09/2023 Address:[address] [place], [place] [address] Pcp:Kanu Montejo MD Subjective: * Chief Complaints: * ??? * Medical History:? Objective: * Vitals:? Assessment: Plan: * Treatment: * Images: * The named appointment provid er may or may not be the originator of this progress note, and it is not deemed complete until electronically signed by the appointment provider. Sign off status: Pending * Provider:?Barron Roche DPM Date:?2023 Generated for Printi ng/Fazacg/eTransmitting on:?10/30/2024 07:47 AM EST
--- OUTSIDE RECORDS SUMMARY | 2024-10-30 07:48 | XMS_ITS ---
Author Organization [facility] Address [address] [place], [place] [id number] Care Team Providers Care Retail Product Demo Specialist Name Role Phone Kanu Montejo Primary Care Provider REASON FOR VISIT physical Encounters Encounter Location Date Provider Diagnosis Kanu Montejo DO, [address] [phone] 09/22/2024 Kanu Montejo PLAN OF TREATMENT No Information
[2024-10-30 08:05] LABS: MANUAL DIFF FLAG NO
[2024-10-30 09:12] LABS: Basophils Absolute Auto 0.1 X10*3/uL (0.0-0.2); Basophils Percent Auto 0.6 % (0-2); Eosinophils Absolute Auto 0.2 X10*3/uL (0.0-0.4); Eosinophils Percent Auto 2.7 % (0-4); Hematocrit 43.5 % (42.0-52.0); Hemoglobin 14.8 g/dl (14.0-18.0); Imm Gran Abs Auto 0.02 X10*3/uL (0.00-0.03); Imm Gran Pct Auto 0.2 % (0.0-0.4); Lymphocytes Absolute Auto 1.8 X10*3/uL (1.2-4.9); Lymphocytes Percent Auto 22.2 % (20-40); Mean Corpuscular Hemoglobin 28.7 pg (27.0-33.0); Mean Corpuscular Volume 84.3 fL (80.0-98.0); Mean Platelet Volume 11.4 fL (9.4-12.4); Monocytes Absolute Auto 0.6 X10*3/uL (0.1-1.2); Monocytes Percent Auto 7.7 % (2-11); Neutrophils Absolute Auto 5.3 x10*3/uL (2.0-8.3); Neutrophils Percent Auto 66.6 % (45-73); Platelet Count 207 X10*3/uL (160-400); Red Blood Count 5.16 X10*6/uL (4.60-5.80); Red Cell Distribution Width 13.5 % (11.0-16.0)
[2024-10-30 09:17] LABS: Estimated Average Glucose 131 mg/dL; Hemoglobin A1C 169.1248 umol/L; Hemoglobin A1c % 6.2 % (<6.0); Total Hemoglobin (HGBA1C) 3854.1394 umol/L
[2024-10-30 09:35] LABS: Creatinine Urine 188.45 mg/dL; Microalbum/Creatinine Ratio Ur 8.4 ug/mg cr (<30)
[2024-10-30 10:05] LABS: Alanine Aminotransferase 27 U/L (0-40); Albumin Level 4.2 g/dL (3.5-5.0); Alkaline Phosphatase 81 U/L (39-117); Anion Gap 12 (12-20); Aspartate Amino Transferase 26 U/L (5-37); Bilirubin Direct 0.5 mg/dL (0.0-0.5); Bilirubin Total 1.2 mg/dL (0.0-1.0); Blood Urea Nitrogen 15 mg/dL (9-16); Calcium 8.7 mg/dL (8.4-10.2); Carbon Dioxide 27 mmol/L (22-29); Chloride 102 mmol/L (96-108); Cholesterol 103 mg/dL (<200); Estimated Glomerular Filt Rate > 60; Glucose Fasting 114 mg/dL (60-99); HDL Cholesterol 37 mg/dL (>40); LDL Cholesterol Calculated 54 mg/dL (<100); Magnesium 1.8 mg/dL (1.6-2.6); Potassium 4.4 mmol/L (3.3-5.1); Sodium 137 mmol/L (135-145); Triglycerides 62 mg/dL (<150)
[2024-10-30 10:06] LABS: PSA,Total (Free>4and<10) 0.35 ng/mL (0.00-4.00)
[2024-10-30 10:10] LABS: TSH reflex Free T4 0.81 uIU/mL (0.32-4.0); Vitamin D 25-OH Total 28.9 ng/mL (>30)
[2024-10-30 10:20] LABS: Folate 6.2 ng/mL (> or = 4.0); Vitamin B12 363 pg/mL (200-900)
== END 2024-10-30 07:45 | disposition home or self-care (01) ==
LOC: HO.LAB 07:44
PROVIDERS: PCP Physician Assistant Medical; Visit Provider Physician Assistant Medical
DX: Z00.00 Encounter for general adult medical examination without abnormal findings (principal); I25.10 Atherosclerotic heart disease of native coronary artery without angina pectoris; E11.9 Type 2 diabetes mellitus without complications; Z12.5 Encounter for screening for malignant neoplasm of prostate
CPT/HCPCS: 36415; 80053; 80061; 80076; 82043; 82248; 82306; 82570; 82607; 82746; 83036; 83735; 84153; 84443; 85025

== ENCOUNTER 2024-11-01 09:06 | Outpatient (AMB) | payer BC, SELFPAY ==
--- NOTE | 2024-11-01 09:06 | MHC.PC.OV ---
Vital Signs 11/01/24 09:09 Weight 296 lb Intake Visit Reasons: 1 month follow up Intake Note: no other issues Allergies No Known Allergies Allergy (Verified 11/01/24 09:21) Medication List - Last Reconciled 11/01/24 by Shaniqua Hodge PA-C atorvastatin 80 mg PO DAILY blood sugar diagnostic ([employer] Ultra Test strips) As directed dulaglutide (Trulicity) mg subcut fluticasone propionate 50 mcg/actuation 2 sprays intranasal DAILY PRN lisinopril 10 mg PO DAILY 90 days metformin 1,000 mg PO BID 90 days metoprolol succinate ER 50 mg PO DAILY pantoprazole 40 mg PO DAILY 90 days [facility] Medical History (Updated 11/01/24 @ 09:33 by Shaniqua Hodge PA-C) Elevated bilirubin Vitamin D deficiency Allergic rhinitis Diabetes mellitus HTN (hypertension) JOHN (obstructive sleep apnea) Morbid obesity Surgical History History of tonsillectomy History of ankle surgery History of nephrectomy, right S/P right rotator cuff repair Family History Father Enlarged heart COPD (chronic obstructive pulmonary disease) Pacemaker Cardiac defibrillator in place Brother SVT (supraventricular tachycardia) Mother Hypercholesteremia Social History Alcohol intake: current Alcohol intake frequency: a few times a month Patient Tobacco Use Status: Never used Tobacco Physical exam (Primary Care) Tobacco/Smoking Status: Tobacco use Status Patient Tobacco Use Status Never used Tobacco 11/01/24 09:10 Telehealth Telehealth Telehealth Platform: Telephone Location of provider rendering services: practice address Location of patient: address on file Patient Identification confirmed using: Name, : Yes Telehealth method: voice only Patient verbally consented to treatment: Yes Patient verbally consented to billing insurance company: Yes Patient informed of any privacy concerns related to visit: Yes Minutes spent on Phone/Video with Pt.: 15 Coding Level of Care Code Tele Est Pt Level 3 (24634) Complex EM visit Add On G2211 Diagnoses HTN (hypertension) I10 Diabetes type 2 E11.9 Non-sustained ventricular tachycardia I47.2 SVT (supraventricular tachycardia) I47.1 JOHN (obstructive sleep apnea) G47.33 Morbid obesity E66.01 Vitamin D deficiency E55.9 Elevated bilirubin R17 Assessment & Plan Assessment & Plan (1) HTN (hypertension): Code(s): I10 - Essential (primary) hypertension Category: Medical Plan: 1. Essential Hypertension Encourage patient to purchase a home blood pressure monitor and begin regular monitoring. If blood pressure remains low, consider adjusting the medication regimen. Patient currently on lisinopril 10 mg and metoprolol extended release 50 mg daily. (2) Diabetes type 2: Code(s): E11.9 - Type 2 diabetes mellitus without complications Category: Medical Plan: 3. Type 2 Diabetes Mellitus Continue Metformin 1000 mg twice daily and Trulicity 30 units weekly. Glycemic control remains stable, as evidenced by recent lab findings. No immediate changes to regimen. Goal A1C <7.0. A1c level 6.3 at goal on 10/30/24. (3) Non-sustained ventricular tachycardia: Code(s): I47.2 - Ventricular tachycardia Category: Medical Plan: Condition is chronic and stable patient denies any palpitations or fast heart rate sensations. Will continue to monitor. (4) SVT (supraventricular tachycardia): Code(s): I47.1 - Supraventricular tachycardia Category: Medical Plan: Condition is chronic and stable patient denies any palpitations or fast heart rate sensations. Will continue to monitor. (5) JOHN (obstructive sleep apnea): Comment: The diagnosis of obstructive sleep apnea was reconfirmed. He does use the CPAP device, with nasal mask, and pressure setting of 6-20 cm. ( using mostly 6.8 to 8.4 cms ) He is very compliant and happy about the use of CPAP. Lately he has some issues with the nasal mask due to his nasal congestion. Code(s): G47.33 - Obstructive sleep apnea (adult) (pediatric) Category: Medical Plan: 2. Obstructive Sleep Apnea Continue CPAP therapy. Monitor for any changes in symptoms. (6) Morbid obesity: Comment: Chronically obese, runs in his family. Has not been in any weight management program. I discussed with him the need for losing more weight, He told me that he is trying to restrict his diet , and walking . Had lost about 36 lb of weight last year but then regained about 14 lb. He has been started on Trulicity injection for control of diabetes mellitus and this may help him to lose some weight Now he is determined to lose weight again. Code(s): E66.01 - Morbid (severe) obesity due to excess calories Category: Medical Plan: Patient has improved diet and exercise regimen. Condition is chronic and stable continue to monitor. (7) Vitamin D deficiency: Code(s): E55.9 - Vitamin D deficiency, unspecified Category: Medical Plan: 5. Vitamin D Deficiency Initiate Vitamin D supplementation on a weekly basis to improve serum levels. (8) Elevated bilirubin: Code(s): R17 - Unspecified jaundice Category: Medical Plan: 4. Elevated bilirubin 1.2. Continue monitoring liver enzyme levels. No intervention required unless symptoms such as abdominal pain develop. Plan Plan Patient was informed and verbally consented to the use of an ambient scribe for clinic note documentation during this visit. 1. Essential Hypertension Encourage patient to purchase a home blood pressure monitor and begin regular monitoring. If blood pressure remains low, consider adjusting the medication regimen. Patient currently on lisinopril 10 mg and metoprolol extended release 50 mg daily. 2. Obstructive Sleep Apnea Continue CPAP therapy. Monitor for any changes in symptoms. 3. Type 2 Diabetes Mellitus Continue Metformin 1000 mg twice daily and Trulicity 30 units weekly. Glycemic control remains stable, as evidenced by recent lab findings. No immediate changes to regimen. Goal A1C <7.0. A1c level 6.3 at goal on 10/30/24. 4. Elevated bilirubin 1.2. Continue monitoring liver enzyme levels. No intervention required unless symptoms such as abdominal pain develop. 5. Vitamin D Deficiency Initiate Vitamin D supplementation on a weekly basis to improve serum levels. Medications: New cholecalciferol (vitamin D3) 1,250 mcg PO QWEEK 3 months 13 caps 0RF vit d deficiency Patient Instructions: Patient Instructions - Continue current diabetes medication regimen as prescribed. - Start taking Vitamin D supplement weekly as discussed. - Purchase a home blood pressure monitor and begin daily or weekly monitoring. - Continue using CPAP therapy nightly. - Report any new symptoms or significant changes in health, particularly related to abdominal pain or dizziness. - No additional interventions are required at this time unless new symptoms develop. Scribe Plan - Not visible on output: History of Present Illness The patient is a 54-year-old male presenting with a focus on maintaining chronic condition management. His Type 2 Diabetes Mellitus is currently being managed with Metformin 1000 mg twice daily and Trulicity 30 units weekly. Recent laboratory results indicate stable glycemic control with a fasting glucose of 114 mg/dL and an HbA1c of 6.2%. The bilirubin levels have been noted to fluctuate but are currently at a mildly elevated level, with an intermittent resolution back to normal; these levels have not been associated with abdominal pain. The patient's Vitamin D levels are low, with no current supplementation. Essential Hypertension management was noted, and blood pressure has previously been recorded as low. The patient does not currently perform regular home monitoring of his blood pressure. Obstructive Sleep Apnea is being treated with CPAP therapy, and recent upper respiratory infection symptoms have resolved following treatment with a Z-Raymundo. The patient reports a general sense of well-being and no current symptomatology related to previously mentioned conditions. Review of Systems - Constitutional: Denies fatigue. - Respiratory: Reports resolution of upper respiratory symptoms. - Neurological: Denies dizziness. - Gastrointestinal: Denies abdominal pain. Discussion Notes During the consultation, I discussed with the patient the stable results of his diabetes management, noting his A1c of 6.2% and fasting glucose level of 114 mg/dL, both of which indicate good control of his condition. I emphasized the importance of continuing his current medication regimen. We also reviewed the fluctuating bilirubin levels and decided on ongoing monitoring with the understanding that intervention will be necessary only if abdominal pain arises. I recommended initiating Vitamin D supplementation to address the deficiency. I explained the necessity of regular blood pressure monitoring, given his history of low readings, to prevent potential complications related to excessive hypotensive episodes. The patient was advised to acquire a home blood pressure cuff to facilitate this. I confirmed the resolution of his recent respiratory symptoms post-Z-Raymundo treatment and reinforced adherence to CPAP therapy for his sleep apnea.
--- OUTSIDE RECORDS SUMMARY | 2024-11-01 09:42 | XMS_ITS ---
Author Organization [facility] Address [address] [place], [place] [id number] Care Team Providers Care Travel Ot Name Role Phone Kanu Montejo Primary Care Provider REASON FOR VISIT physical Encounters Encounter Location Date Provider Diagnosis Kanu Montejo DO, [address] [id number] 09/22/2024 Kanu Montejo PLAN OF TREATMENT No Information
--- OUTSIDE RECORDS SUMMARY | 2024-11-01 09:42 | XMS_ITS | Patient Health Record ---
Author Organization [facility] Address [address] [place] [address] Care Team Providers Care Security Researcher Name Role Phone Kanu Montejo MD Primary Care Provider Unavail able Barron Roche Unavailable [phone] Reason For Referral No Information Medications Medication [...] Problem Status W/U Status Risk Notes Problem [id number] Plantar fasciitis, bilateral (M72.2) Active confirmed Dx New problem, Prognosis Uncertain (4) Plan Of Treatment Pending Test Test Name Order Date X ray : Foot, left 3V 07/04/2016 X ray : Foot, left 3V 06/06/2023 X ray : Foot, right 3V 06/06/2023 [id number] SKIN LESIONS, 2 TO 4 07/04/20 16 [id number] NAIL(S) 07/04/2016 Insurance Providers Payer Name Payer Address Payer Phone Subscriber Number Group Number Insured Name Patient Relationship to Insured Coverage Start Date Coverage End Date Hieu Navarro [address] [place] [address] [id number] Danny King Self - patient is the insured Medical (General) History Medical History History ICD Code Broken bones type II diabetes Kidney disease Warts Chicken pox Arthritis covid-19 Diabetic High blood pressure Reflux ( GERD) Surgical History Surgery Date(Month/Year) Rt kidney removed 09/2009 Ankle sx 09/1985 Rotator Cuff 2014
--- OUTSIDE RECORDS SUMMARY | 2024-11-01 09:42 | XMS_ITS ---
Author Organization Kanu Montejo DO, FACP Address [address] [place], [place] [id number] Care Team Providers Care Tone Cabinet Assembler Name Role Phone Gustabo Kanu Primary Care Provider [phone] REASON FOR VISIT Message MEDICATIONS Medication SIG (Take, Route, Fr equency, Duration) Notes Start Date End Date Status Azithromycin 250 MG 2 tablets on the fir st day, then 1 tablet daily for 4 days Orally Once a day for 5 day(s) 06/08/2024 Active Encounters Encounter Location Date Provider Diagnosis BILL Hernandez DO[address] [id number] 06/08/2024 Kanu Montejo PLAN OF TREATMENT Medication Medication Name Sig Start Date Stop Date Notes Azithromycin 250 MG [address] day, then 1 tablet daily for 4 days Orally Once a day for 5 day(s) 06/08/2024
--- OUTSIDE RECORDS SUMMARY | 2024-11-01 09:42 | XMS_ITS | Continuity of Care Document ---
Author Organization [facility] [address] [place] [address] Phone [phone] Care Team Providers Care Back Stayer Name Role Phone Kanu Montejo M.D. Care Team Information Recei shiva [phone] Problems Active Problems Provider Date Type 2 [...] e11.9 2ml E11Kacey Huston M.D. 04/01/2024 E78.00 Jgablbbbx5om/0.5ML Solution Auto-Inject Inject 3 MG Subcutaneously MG Once A Week 6ml E11.9 Jeff Epstein M.D. 03/26/2024 Freestyle Dai 3/Sensor/Glucose Monitoring Fathcy1Yugozj Misc use as directed dx:e11.9 3units E11.9 Narcisa Huston M.D. 03/26/2024 E66.9 Fluticasone Ovvbseuhqb41wri/Act Suspension instill 1 sprays (100mcg) in each nostril once daily in the morning (for allergies) 16units Gonzalo Varner M.D. 05/20/2022 Flomax0.4mg Capsules 1 every day Peng Varner M.D. 05/20/2022 Metformin PES4780px Tablets 1 tab by hodan th twice a day 60tabs Kanu Montejo M.D. Zfurezjkcd09ti Tablets 1 by mouth every day Kanu Montejo M.D. Metoprolol Succinate ER25mg Tablets ER 24HR Take 1 Tablet By Mouth Every Day Donaldo Aguilar MD Atorvastatin Yuwspdh46ay Tablets Take 1 Tablet By Mouth Every Day Donaldo Aguilar MD Pantoprazole Lnkrga04va Tablets DR Take 1 Tablet By Mouth [...]
--- OUTSIDE RECORDS SUMMARY | 2024-11-01 09:42 | XMS_ITS ---
Author Organization Kanu Montejo DO, FAC Address [address] [place], [place] [address] Care Team Providers Care Meter Maintenance Person Name Role Phone Kanu Montejo Primary Care Provider ALLERGIES No Known Allergies REASON FOR VISIT [...] Location Date Provider Diagnosis Kanu Montejo DO, [address] [phone] 03/10/2024 Kanu Montejo Type 2 diabetes sarthak [...] General Examination GENERAL APPEARANCE: in no ac red cliff distress, well developed, well nourished HEAD: normocephalic, atrau matic HEART: no murmurs, regular rate and rhythm, S1, S2 normal LUNGS: clear to auscultatio n bilaterally ABDOMEN: normal, bowel sounds present, soft, nontender, nondistended SKIN: warm and dry EXTREMITIES: no edema PSYCH: alert, oriented, cog nitive function intact
--- OUTSIDE RECORDS SUMMARY | 2024-11-01 09:42 | XMS_ITS ---
Author Organization [facility] Address [address] [place] [address] Care Team Providers Care Vitamin Manager Name Role Phone Kanu Montejo MD Primary Care Provider Unavail able Barron Roche Unavailable [phone] Leandro Penn Unavailable [phone] REASON FOR VISIT off cx list Medications Medication SIG (Take, Route, Frequency, Duration) Notes Start Date End Date Status Protonix 40 MG 1 tablet Orally Once a day Unknown Lisinopril 20 MG 1 tablet Orally Once a day Unknown Pantoprazole Sodium 40 MG TAKE 1 TABLET BY MOUTH DAILY Oral for 90 Days Active Lipitor Unknown metFORMIN HCl 500 MG 1 tablet with meals Orally Twice a day Active Metoprolol Succinate 50 MG 1 capsule Ora lly Once a day Active Tamsulosin HCl 0.4 MG 1 capsule Orally O nce a day Active Trulicity 0.75 MG/0.5ML as directed Subcutaneous Active Atorvastatin Calcium 80 MG 1 tablet Oral ly Once a day Active Lisinopril 10 MG 1 tablet Orally Once a day Active Social History Alcohol Screen Question Answer Notes Did you have a drink containing alcohol in the p ast year? Yes Points 0 Interpretation Negative Tobacco use other than smoking: Question Answer Notes Are you an other tobacco user? No Vital Signs Height 5 ft 10 in in 06/19/2023 Weight 320 lbs 06/19/2023 BMI 45.91 kg/m2 06/19/2023 Encounters Encounter Location Date Provider Diagnosis [facility] [address] [place] [address] 06/19/2023 Leandro Penn Plan Of Treatment No Information Progress Notes * Danny THOMPSON DDOB:[birth year] (54 yo M)Acc No.[id number]:06/19/2023 Progress Notes Patient:?Danny THOMPSON Provider:?Leandro Penn DPM :1970???Age:53 Y???Sex:Male Carter e:06/19/2023 Address:[address] [place], [place] [id number] Pcp:Kanu Montejo MD Subjective: * Chief Complaints: * ???1. Off cx list. * ROS:?General/Constitutional:?Nausea?denies.?Vomiting?denies.?Hunger Thirst?denies.?Loss appetite?denies.?Chills?denies.?Fatigue?denies.?Fever?denies.?Night Sweats?denies.?Unexplained weight loss?denies.?Unexplained weight gain?denies.?HEENTM:?Dentures?denies.?Dizziness?denies.?Glasses/contacts?denies.?Retinopathy?de nies.?Blurred/double vision?denies.?TMJ?denies.?Discharge/drainage?denies.?Implants?denies.?Sore throat?denies.?Dental implants?denies.?Hard of hearing ?denies.?Difficulty chewing/swallowing/speaking?denies.?Nose bleeds?denies.?Sore mouth?denies.?Respiratory:?On Oxygen?denies.?Pneumonia/pleurisy?denies.?Bronchitis?denies.?Emphysema?denies.?C oughing?denies.?Cough blood?denies.?Shortness of breath?denies.?Wheezing?denies.?Cardiovascular:?Pacemaker?denies.?MVP?denies.?WPW?denies.?CHF?denies.?Heart attack?denies.?Septal defect?denies.?Rapid beat?denies.?Chest pain ?denies.?Atrial Fib.?denies.?Murmur/Palpitations?denies.?Gastrointestinal:?Hemorrhoids?denies.?Stomach/Abdominal pain?denies.?Dark blood stool?denies.?Irritable bowel ?denies.?Constipation?denies.?Diarrhea?denies.?Hematology:?Swelling?denies.?Clots?denies.?Varicose Veins?denies.?Bruising?denies.?Bleeding problem?denies.?Genitourinary:?Blood urine?denies.?Frequent/Painfu/urination/bladder control?admits.?Kidney stones?admits.?Infection (UTI)?denies.?Nephropathy?denies.?sex trans dis (STD)?denies.?Prostate?denies.?Musculoskeletal:?Hammertoes?denies.?Bunions?denies.?Back Pain?admits.?Muscle Cramps/ Resting?admits.?Muscle cramps / walking?admits.?Generalized aches and pains?admits.?Weakness?denies.?Integ.:?Doll?denies.?Scars?denies.?Corns/calluses?denies.?Ingrown nails?denies.?Painful nails?denies.?Open Sores?denies.?Rashes?denies.?Neurologic:?Difficulty sleeping?denies.?Brain disorder?denies.?Numbness?denies.?Balance trouble?denies.?Confusion?denies.?Fainting/blackouts?denies.?Tingling?denies.?Tr emors?denies.? * Medical History:?Broken bone s, type II diabetes, Kidney disease, Warts, Chicken pox, Arthritis, Covid-19, Diabetic, High blood pressure, Reflux ( GERD). * Surgical History:?Rt kidney removed 09/2009, Ankle sx 09/1985, Rotator Cuff 2013. * Family History:?Mother: cydney vaughn, diagnosed with Family history of arthritis.?Father: , diabetes, arthritis, stroke, cancer, heart attack, high blood pressure.? * Social History:?Tobacco Use:?Tobacco Use/Smoking?Are you a:: former smoker , Additional Findings: Tobacco Non-User: Current non-smoker.?Tobacco use other than smoking?Are you an other tobacco user??No ???Drugs/Alcohol:?Drugs?Have you used drugs other than those for medical reasons in the past 12 months??No ?Alcohol Screen?Did you have a drink containing alcohol in the past year??Yes ?Points?0 ?Interpretation?Negative ???Miscellaneous:?Caffeine: 1-2 cups per day. ?Children: yes, 3. ?Exercise: bike riding, weightlifting. ?Marital status: . 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 * Medications:?Taking Tamsulos in HCl 0.4 MG Capsule 1 capsule Orally Once a day , Taking Lisinopril 10 MG Tablet 1 tablet Orally Once a day , Taking Atorvastatin Calcium 80 MG Tablet 1 tablet Orally Once a day , Taking Trulicity 0.75 MG/0.5ML Solution Pen-injector as directed Subcutaneous , Taking Metoprolol Succinate 50 MG Capsule ER 24 Hour Sprinkle 1 capsule Orally Once a day , Taking Pantoprazole Sodium 40 MG Tablet Delayed Release TAKE 1 TABLET BY MOUTH DAILY Oral , Taking metFORMIN HCl 500 MG Tablet 1 tablet with meals Orally Twice a day , Unknown Lisinopril 20 MG Tablet 1 tablet Orally Once a day , Unknown Protonix 40 MG Tablet Delayed Release 1 tablet Orally Once a day , Unknown Lipitor Objective: * Vitals:?Ht: 5 ft 10 in, Wt:3 20, BMI:45.91, Ht-cm: 177.8 cm, Wt-k.15 kg. Assessment: Plan: * Treatment: * Images: * The named appointment provid er may or may not be the originator of this progress note, and it is not deemed complete until electronically signed by the appointment provider. Sign off status: Pending * Provider:Graciela Penn DPM Date:? 023 Generated for Katy hu/Alma/Rustam on:?11/01/2024 09:41 AM EST
--- OUTSIDE RECORDS SUMMARY | 2024-11-01 09:43 | XMS_ITS ---
Author Organization [facility] Address [address] [place] [address] Care Team Providers Care Salon Leader Name Role Phone Kanu Montejo MD Primary Care Provider Unavail Barron Newsome Unavailable [phone] REASON FOR VISIT same day cx 09/09/23 Encounters Encounter Location Date Provider Diagnosis [facility] [address] [place] [address] 09/09/2023 Barron Roche Plan Of Treatment No Information Progress Notes * Danny THOMPSON DDOB:[birth year] (53 yo M)Acc No.[id number]:09/09/2023 Patient:?Danny Thompson :1970???Age:53 Y???Sex:Male Address:[address] [place] [address], [address] * true * Date:? Generated for Printi fritz/Alma/eTransmitting on:?11/01/2024 09:42 AM EST
== END 2024-11-01 09:59 | disposition home or self-care (01) ==
LOC: HO.HMCSH 09:06
PROVIDERS: PCP Physician Assistant Medical; Visit Provider Physician Assistant Medical
DX: I10 Essential (primary) hypertension (principal); E11.9 Type 2 diabetes mellitus without complications; I47.20 Ventricular tachycardia, unspecified; I47.10 Supraventricular tachycardia, unspecified; E66.01 Morbid (severe) obesity due to excess calories; G47.33 Obstructive sleep apnea (adult) (pediatric); E55.9 Vitamin D deficiency, unspecified; R17 Unspecified jaundice

== ENCOUNTER → 2024-11-01 09:06 | Outpatient (BNVA) | payer BC, SELFPAY | PROVIDERS: PCP Physician Assistant Medical; Visit Provider Physician Assistant Medical ==

== ENCOUNTER 2025-01-24 15:41 | Outpatient (AMB) | payer BC, SELFPAY ==
--- OUTSIDE RECORDS SUMMARY | 2025-01-24 15:44 | XMS_ITS ---
Author Name [facility] Organization Unknown Care Team Organization Name Specialty Phone Email Start Date End [facility] 07/23/2024
--- OUTSIDE RECORDS SUMMARY | 2025-01-24 15:44 | XMS_ITS | Continuity of Care Document ---
Author Organization [facility] [address] [place] [address] Phone [phone] Care Team Providers Care Supervisor Propellant Charge Loading Name Role Phone Kanu Montejo M.D. Care Team Information Recei shiva [phone] Problems Active Problems Provider Date Type 2 [...] SIG Qnty Indications Order ing Provider Date Mounjaro2.5mg/0.5ML Solution Auto-Inject inject 2.5 mg weekly subcutaneously 2ml E11.9 Narcisa Huston M.D. 12/16/2024 I10 E78.00 Fluticasone [id number]/Act Suspension instill 1 sprays (100mcg) in each nostril once daily in the morning (for allergies) 16units Gonzalo Varner M.D. 05/20/2022 Flomax0.4mg Capsules 1 every day Peng Varner M.D. 05/20/2022 Metformin [id number] Tablets 1 tab by hodan twice a day 60tabs Kanu Montejo M.D. [id number] Tablets 1 by mouth every day Kanu Montejo M.D. Metoprolol Succinate ER25mg Tablets ER 24HR Take 1 Tablet By Mouth Every Day Donaldo Aguilar MD Atorvastatin Zwmpsot18os Tablets Take 1 Tablet By Mouth Every Day Donaldo Aguilar MD Pantoprazole [id number] Tablets DR Take 1 Tablet By Mouth Every Day Kanu Montejo M.D. History Medications Trulicity1.5mg/0.5ML Solution Pen-Inject inject 1.5mg subcutaneously every week dx: e11.9 2ml E11.9 Narcisa Huston M.D. 04/01/2024 - 12/16/2024 E78.00 Chmcbxxdx1fx/0.5ML Solution Auto-Inject Inject 3 MG Subcutaneously MG Once A Week 6ml E11.9 Jeff Epstein M.D. 03/26/2024 - 01/21/2025 Vital Signs Date Vital Result Comment 12/16/2024 3:42pm BP Systolic 122 mmHg BP Diastolic 64 mmHg Heart Rate 76 /min Height 70 inches 5'10 Weight 304.00 lb BMI (Body Mass Index) 43.6 kg/m2 Results Test Acquired Date Facility Test Result H/L Range N ote Glucose Fingerstick 12/16/2024 Inhouse Glucose Fingerstick 118 Hemoglobin A1c 12/16/2024 Inhouse Hemoglobin A1c 6.5% Albumin/Creatinin e Ratio, Random Urine 06/29/2024 [facility] Creatinine, Urine 124.9 mg/dL Not Estab. Albumin, Urine <3.0 ug/mL Not Es tab. Alb/Creat Ratio <2 mg/gcreat 0-29 1 Glucose Fingerstick 06/29/2024 Inhouse Glucose Fingerstick 109 Hemoglobin A1c 06/29/2024 Inhouse Hemoglobin A1c 6.7% Glucose Fingerstick 03/26/2024 Inhouse Glucose Fingerstick 215 Hemoglobin A1c 03/26/2024 Inhouse Hemoglobin A1c 7.8% Glucose Fingerstick 11/24/2023 Inhouse Glucose Fingerstick 116 Hemoglobin A1c 11/24/2023 Inhouse Hemoglobin A1c 6.8% Glucose Fingerstick 07/24/2023 Inhouse Glucose Fingerstick 117 Hemoglobin A1c 07/24/2023 Inhouse Hemoglobin A1c 6.6% Glucose Fingerstick 04/21/2023 Inhouse Glucose Fingerstick 189 Hemoglobin A1c 04/21/2023 Inhouse Hemoglobin A1c 6.4% Glucose Fingerstick 12/17/2022 Inhouse Glucose Fingerstick 105 Hemoglobin A1c 12/17/2022 Inhouse Hemoglobin A1c 6.3% Glucose Fingerstick 05/20/2022 Inhouse Glucose Fingerstick 123 1 Normal: 0 - 29 Moderately increased: 30 - 300 Severely increased: >300 Medical Devices Description No Information Available Encounters Type Date Location Provider Dx Diagnosis Office Visit 12/16/2024 3:30p Main Office MARY Iqbal E11.9 Type 2 diabet es mellitus without complications E78.00 Pure hypercholestero lemia, unspecified I10 Essential (primary) hypertension E66.9 Obesity, unspecified Z68.41 Body mass index [BMI ] 40.0-44.9, adult Assessments Date Code Description Provider 12/16/2024 E11.9 Type 2 diabetes mellitus wit hout complications MARY Iqbal 12/16/2024 E78.00 Hypercholesterolemia MARY Iqbal 12/16/2024 I10 Essential (primary) hyperten levar MARY Iqbal 12/16/2024 E66.9 Obesity, unspecified MARY Iqbal 12/16/2024 Z68.41 Body mass index [BMI] 40.0-4 4.9, adult MARY Iqbal Plan of Treatment Future Appointment(s):* 03/24/2025 3:30 pm - MARY Iqbal at Main Office 12/16/2024 - MARY Iqbal* E11.9 Type 2 diabetes mellitus without complications * E78.00 Hypercholesterolemia * I10 Essential (primary) hypertension * E66.9 Obesity, unspecified * Z68.41 Body mass index [BMI] 40.0-44.9, adult* New Medication:* Mounjaro 2.5 mg/0.5ML Functional Status Description No Information Available Mental Status Description No Information Available Referrals Description No Information Available
[2025-01-24 15:50] VITALS: BP 110/70; PULSE 74; O2SAT 98; BMI 44.6
--- NOTE | 2025-01-24 15:50 | A.OFFVIS_ITS ---
Vital Signs 01/24/25 15:50 Height 5 ft 9.5 in Weight 306 lb 7.08 oz BMI 44.6 BP 110/70 Blood Pressure Location Lt brachial Position Sitting Pulse 74 Pulse Source Pulse Oximeter Pulse Oximetry (%) 98 Oxygen Delivery Method Room Air Intake Visit Reasons: Obstructive sleep apnea Intake Note: pt is here for follow up and states he is doing well, feeling good. Baker Operator Automatic Required: No Allergies No Known Allergies Allergy (Verified 01/24/25 16:09) Medication List - Last Reconciled 01/24/25 by Nesha Smith MD atorvastatin 80 mg PO DAILY blood sugar diagnostic ([facility] Ultra Test strips) As directed cholecalciferol (vitamin D3) 1,250 mcg PO QWEEK 3 months fluticasone propionate 50 mcg/actuation 2 sprays intranasal DAILY PRN lisinopril 10 mg PO DAILY 90 days metformin 1,000 mg PO BID 90 days metoprolol succinate ER 50 mg PO DAILY pantoprazole 40 mg PO DAILY 90 days tirzepatide (Mounjaro) 2.5 mg subcut QWEEK Do you need a note to return to daycare/school/sports/work: No HPI HPI Obstructive sleep apnea: Details: THIS 54 YEARS OLD VERY PLEASANT GENTLEMAN IS A CASE OF MORBID OBESITY AND OBSTRUCTIVE SLEEP APNEA. USES CPAP EVERY NIGHT REGULARLY AND SLEEPS WELL. DENIES ANY ISSUES WITH THE MASK OR CPAP DEVICE. DENIES ANY DAYTIME SLEEPINESS. WEIGHT WEBER HE HAS MADE NO PROGRESS, ACTUALLY RECENTLY HAS PUT ON SOME WEIGHT. HE IS BEING TREATED FOR DIABETES MELLITUS AND HAS BEEN ON TRULICITY INJECTIONS. NOW HAS BEEN SWITCHED TO MOUNJARO INJECTIONS, AND HOPEFULLY WILL LOSE WEIGHT. HE TRIES TO WATCH HIS DIET. [facility] Medical History Elevated bilirubin Vitamin D deficiency Allergic rhinitis Diabetes mellitus HTN (hypertension) JOHN (obstructive sleep apnea) Morbid obesity Surgical History History of colonoscopy (~09/10/19) History of tonsillectomy History of ankle surgery History of nephrectomy, right S/P right rotator cuff repair Family History Father Enlarged heart COPD (chronic obstructive pulmonary disease) Pacemaker Cardiac defibrillator in place Brother SVT (supraventricular tachycardia) Mother Hypercholesteremia Social History Alcohol intake: current Alcohol intake frequency: a few times a month Patient Tobacco Use Status: Never used Tobacco Review of Systems Const All systems reviewed & are unremarkable except as noted in HPI and below Reports snoring Eyes Reports no additional complaints ENT Reports no additional complaints Card Denies chest pain, Denies irregular heart rhythm and Denies leg edema Resp Denies cough, Reports snoring and Denies wheezing GI Reports heartburn (GERD symptoms controlled with medicine) Reports other (Symptoms of BPH) Musc Reports no additional complaints Skin/Breast Reports system reviewed and no additional complaints, except as documented Neuro Reports no additional complaints Psych Reports no additional complaints Endo Reports no additional complaints Aller/Immun Denies wheezing Physical Exam Const Other: Still grossly obese but has lost 30 lb since November of this year General: healthy appearing (Except for being overweight), comfortable, no acute distress, alert and awake Orientation/consciousness: patient oriented x3 HEENT Head: Yes normal to inspection General nose exam: No nasal polyps present and No nasal discharge present Face and sinus: Yes sinuses nontender and Yes other (Mild nasal congestion) Mouth: oropharynx normal Throat: No posterior oropharynx normal (Oropharynx is crowded, Mallampati class 4) Eyes General: appearance normal, both eyes and all related structures Neck Neck: Yes normal visual inspection, Yes no lymphadenopathy, Yes trachea midline, Yes no JVD and Yes other (Neck circumference 19 in) Thyroid: Thyroid normal Chest Chest palpation & inspection: normal inspection of the chest, normal palpation of entire chest wall and no tenderness Resp Effort & Inspection: normal respiratory effort Auscultation: clear to auscultation bilaterally, no crackles, no rhonchi and no wheezes Percussion: percussion normal Cardio Palpation: PMI not normal (Not palpable) Rate: regular rate Rhythm: regular rhythm Heart sounds: no gallops and no murmurs Peripheral pulses: Peripheral pulses 2+ throughout GI Palpation (GI): Soft to palpation, nontender, No hepatosplenomegaly present, no masses and Other GI palpation findings present (Abdomen is obese and protuberant) Auscultation: normal bowel sounds Back/Spine/Pelvis Thoracic/Lumbar Spine: thoracic and lumbar spine normal to inspection Skin General skin exam: no rashes or lesions noted Neuro General: patient oriented x3 and no focal motor deficits Cranial nerves: Yes CN's II-XII intact bilaterally Extrem General: Yes normal to inspection, Yes no clubbing, cyanosis or edema and Yes no calf tenderness Psych Appearance: grossly normal and well kempt Speech and movement: Normal speech and movement present Results Reviewed Results Reviewed: COMPLIANCE REPORT FOR THE LAST 30 NIGHTS IS REVIEWED. HE HAS USED 26/30 NIGHTS, 87%. AVERAGE USE IT PER NIGHT IS 5 HOURS 43 MINUTES. AVERAGE PRESSURE USED IS 8 CM. NO SIGNIFICANT AIR LEAK. RESIDUAL AHI 0 Assessment & Plan Assessment & Plan (1) Morbid obesity: Comment: Chronically obese, runs in his family. Has not been in any weight management program. I discussed with him the need for losing more weight, He told me that he is trying to restrict his diet , and walking . He was on Trulicity injection for control of diabetes mellitus. Now it his changed to MOUNJARO injections, and hopefully would lose more weight. Code(s): E66.01 - Morbid (severe) obesity due to excess calories Category: Medical Plan: Encouraged to watch his diet, and stay on the Tirzepatide injection . (2) JOHN (obstructive sleep apnea): Comment: The diagnosis of obstructive sleep apnea was reconfirmed. He does use the CPAP device, with nasal mask, and pressure setting of 6-20 cm. ( using mostly 6.8 to 8.4 cms ) He is very compliant and happy about the use of CPAP. Lately he has some issues with the nasal mask due to his nasal congestion. And misses using a few nights every month, Code(s): G47.33 - Obstructive sleep apnea (adult) (pediatric) Category: Medical Plan: Encouraged to keep on using the CPAP every night, try to use for more than 6 hours per night. (3) Allergic rhinitis: Comment: Mild intermittent nasal congestion Code(s): J30.9 - Allergic rhinitis, unspecified Category: Medical Plan: May use FLONASE-50 2 sprays in each nostril daily or p.r.n. Coding Level of Care Code Est Pt Level 3 (51921) Diagnoses Morbid obesity E66.01 JOHN (obstructive sleep apnea) G47.33 Allergic rhinitis J30.9
== END 2025-01-24 16:05 | disposition home or self-care (01) ==
LOC: HO.HPS 15:41
PROVIDERS: PCP Internal Medicine; Visit Provider Internal Medicine
DX: E66.01 Morbid (severe) obesity due to excess calories (principal); G47.33 Obstructive sleep apnea (adult) (pediatric); J30.9 Allergic rhinitis, unspecified
CPT/HCPCS: 99213

== ENCOUNTER 2025-04-07 15:25 | Outpatient (AMB) | payer BC, SELFPAY ==
--- NOTE | 2025-04-07 15:28 | MHC.PC.OV ---
Vital Signs 04/07/25 15:29 Height 5 ft 9.5 in Weight 311 lb BMI 45.3 BP 114/68 Respiration 16 Pulse 80 Pulse Source Pulse Oximeter Temp 97.7 F Temp Source Temporal Artery Scan Pulse Oximetry (%) 96 Oxygen Delivery Method Room Air Intake Visit Reasons: follow up Correctional Therapy Director Required: No Accompanied by: Self / Same As Patient Allergies No Known Allergies Allergy (Verified 04/07/25 16:02) Medication List - Last Reconciled 04/07/25 by Shaniqua Hodge PA-C atorvastatin 80 mg PO DAILY blood sugar diagnostic (EdCourageTouch Ultra Test strips) As directed cholecalciferol (vitamin D3) 1,250 mcg PO QWEEK fluticasone propionate 50 mcg/actuation 2 sprays intranasal DAILY PRN lisinopril 10 mg PO DAILY metformin 1,000 mg PO BID 90 days metoprolol succinate ER 50 mg PO DAILY pantoprazole 40 mg PO DAILY 90 days tamsulosin 0.4 mg PO DAILY tirzepatide (Mounjaro) 7.5 mg subcut QWEEK Tobacco use date assessed: 04/07/25 Dental Screening Dental Screen Date: 04/07/25 Did you have a dental visit in the last 12 months?: Yes Did you have a dental problem in the last 6 months where you did not have access to dental care?: No Was dental information given to patient?: Patient has dentist HPI follow up HPI Details The patient is a 55-year-old male presenting with a follow-up visit to monitor blood pressure and review recent lab results. The patient has a history of essential hypertension, which has been managed with medication since his kidney removal surgery. His blood pressure was recorded at 140/72 mmHg two weeks ago, and it is currently 114/68 mmHg. The patient reports no symptoms of dizziness or chest pain, indicating stable blood pressure control. The patient also has a history of type 2 diabetes mellitus, with a recent A1c level of 6.2% measured by his configuration management consultant. He is under regular follow-up with his configuration management consultant every three months. Additionally, the patient has a mild vitamin D deficiency, with a level of 28.9 ng/mL, slightly below the normal range of greater than 30 ng/mL. No specific symptoms related to vitamin D deficiency were reported. The patient has obstructive sleep apnea and is compliant with CPAP therapy, reporting no issues with its use. 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 [facility] Medical History Elevated bilirubin Vitamin D deficiency Allergic rhinitis Diabetes mellitus HTN (hypertension) JOHN (obstructive sleep apnea) Morbid obesity Surgical History History of colonoscopy (~09/10/19) History of tonsillectomy History of ankle surgery History of nephrectomy, right S/P right rotator cuff repair Family History Father Enlarged heart COPD (chronic obstructive pulmonary disease) Pacemaker Cardiac defibrillator in place Brother SVT (supraventricular tachycardia) Mother Hypercholesteremia Social History Housing: House Alcohol intake: current Alcohol intake frequency: holidays/special occasions only Patient Tobacco Use Status: Former Tobacco user service: No Current occupational status: employed and retired 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 1. Little interest or pleasure in doing things: not at all 2. Feeling down, depressed, or hopeless: not at all 3. Trouble falling or staying asleep, or sleeping too much: not at all 4. Feeling tired or having little energy: not at all 5. Poor appetite or overeating: not at all 6. Feeling bad about yourself - or that you are a failure or have let yourself or your family down: not at all 7. Trouble concentrating on things, such as reading the newspaper or watching television: not at all 8. Moving or speaking so slowly that other people could have noticed. Or the opposite - being so fidgety or restless that you have been moving around a lot more than usual: not at all 9. Thoughts that you would be better off or of hurting yourself in some way: not at all Total score: 0 Depression Screening Interpretation: Negative Depression Screening Done: Yes 34044 - PHQ-9 Billing: Yes Source: Developed by Drs. Kanu Carter, Bonifacio Brennan and colleagues, with an educational alvin from [employer]. Thrive Questionnaire Date Thrive assessed: 04/07/25 I am a: Patient What is your living situation today?: I have a steady place to live Within the past 12 months, did the food you bought not last and you didn't have the money to get more?: Never true Within the past 12 months, did you worry whether your food would run out before you got money to buy more?: Never true Do you have trouble paying for medicines?: No Do you have trouble getting transportation to medical appointments?: No Do you have trouble paying your heating and electricity bill?: No Do you have trouble taking care of your child, family member or friend?: No Do you have trouble with day-to-day activities such as bathing, preparing meals, shopping, managing finances, etc.?: No Are you currently unemployed and looking for a job?: No Are you interested in more education?: No Please select the resources that you would like help with: None THRIVE Score: 0 AUDIT C Alcohol Use Questionnaire (AUDIT-C) 1. How often do you have a drink containing alcohol?: Monthly or less 2. How many drinks containing alcohol do you have on a typical day when you are drinking?: 1 or 2 3. How often do you have six or more drinks on one occasion?: Never Total Score: 1 Score Reviewed/Action Taken: No MELISSA-7 AMB Questionnaire MELISSA-7 Date MELISSA - 7 assessed: 04/07/25 Feeling nervous, anxious, or on edge: 0 = Not at all Not being able to stop or control worryin = Not at all Worrying too much about different things: 0 = Not at all Trouble relaxin = Not at all Being so restless that it is hard to sit still: 0 = Not at all Becoming easily annoyed or irritable: 0 = Not at all Feeling afraid as if something awful might happen: 0 = Not at all Total MELISSA-7 score (0-4 normal; 5-9 mild; 10-14 moderate; 15-21 severe): 0 Source: Developed by Carolina Calle Kurt Kroenke and colleagues, with an educational alvin from [employer]. MELISSA-7 Assessment Billing MELISSA-7 Assessment Tool: MELISSA-7 Assessment 77362 Review of Systems Const Details: - Cardiovascular: Denies dizziness, chest pain, or syncope. - Endocrine: Reports stable blood glucose levels with recent A1c of 6.2%. - Musculoskeletal: Denies any new symptoms related to vitamin D deficiency. - Respiratory: Reports compliance with CPAP therapy for sleep apnea. All systems reviewed & are unremarkable except as noted in HPI and below Physical exam (Primary Care) Vital Signs: Last Vital Signs Temp 97.7 F 04/07/25 15:29 Pulse 80 04/07/25 15:29 Resp 16 04/07/25 15:29 BP 114/68 04/07/25 15:29 Pulse Ox 96 04/07/25 15:29 Oxygen Delivery Method Room Air 04/07/25 15:29 Care Plan Goal for BP management: <140/90 at Goal BMI result Body Mass Index 45.3 BMI Assessment/Plan discussion: High BMI High, discussed plan: lifestyle, weight reduction, dietary, physical activity and alcohol moderation Tobacco/Smoking Status: Tobacco use Status Tobacco use date assessed 04/07/25 04/07/25 15:31 Patient Tobacco Use Status Former Tobacco user 04/07/25 15:41 PHQ-9: PHQ-9 Score PHQ-9: Total score 0 04/07/25 15:41 Depression Screening Interpretation: Negative Thrive Assessment: Date of Thrive Assessment Date Thrive assessed 04/07/25 04/07/25 15:31 Const Other: Appearance: Alert. Oriented X3. No acute distress. Head: Normal external exam. Normocephalic. Atraumatic. Eyes: Pupils are equal, round, and reactive to light. Extraocular movements intact. Conjunctiva and sclera normal. Eyelids normal. Throat: Pharynx normal. Uvula midline. Moist mucous membranes. Neck: Normal inspection. Neck supple. Full range of motion. Cardiovascular: Normal heart rate and rhythm. Respiratory: No respiratory distress. Painless inspiration. Back: Full range of motion noted. Skin: Skin warm and dry. Normal skin color. Normal skin turgor. No rashes/lesions/lacerations noted. Extremities: Extremities exhibit normal range of motion. Neuro: Oriented X 3. No motor deficit. No sensory deficit. Reflexes normal. Results Reviewed Results Reviewed: - Labs: A1c level at 6.2% measured by configuration management consultant two weeks ago. - Labs: Vitamin D level at 28.9 ng/mL, slightly below normal range. Coding Level of Care Code Est Pt Level 4 (64762) Complex EM visit Add On G2211 Diagnoses HTN (hypertension) I10 Diabetes type 2 E11.9 Vitamin D deficiency E55.9 JOHN (obstructive sleep apnea) G47.33 Additional Codes PHQ-9 - 18625 - PHQ-9 Billing: Yes ([id number]) MELISSA-7 Assessment Billing - MELISSA-7 Assessment Tool: MELISSA-7 Assessment 83018 ([id number]) Assessment & Plan Assessment & Plan (1) HTN (hypertension): Code(s): I10 - Essential (primary) hypertension Category: Medical Plan: The patient's blood pressure is currently well-controlled at 114/68 mmHg. He should continue his current antihypertensive medication regimen. Follow-up is recommended in six months unless symptoms such as dizziness or chest pain occur. (2) Diabetes type 2: Code(s): E11.9 - Type 2 diabetes mellitus without complications Category: Medical Plan: The patient's A1c level is 6.2%, indicating good glycemic control. He is under regular follow-up with his configuration management consultant every three months. (3) Vitamin D deficiency: Code(s): E55.9 - Vitamin D deficiency, unspecified Category: Medical Plan: The patient's vitamin D level is slightly below normal at 28.9 ng/mL. No specific treatment was discussed during this visit. (4) JOHN (obstructive sleep apnea): Comment: The diagnosis of obstructive sleep apnea was reconfirmed. He does use the CPAP device, with nasal mask, and pressure setting of 6-20 cm. ( using mostly 6.8 to 8.4 cms ) He is very compliant and happy about the use of CPAP. Lately he has some issues with the nasal mask due to his nasal congestion. And misses using a few nights every month, Code(s): G47.33 - Obstructive sleep apnea (adult) (pediatric) Category: Medical Plan: The patient is compliant with CPAP therapy and reports no issues. Plan Plan Patient was informed and verbally consented to the use of an ambient scribe for clinic note documentation during this visit. 1. Essential Hypertension The patient's blood pressure is currently well-controlled at 114/68 mmHg. He should continue his current antihypertensive medication regimen. Follow-up is recommended in six months unless symptoms such as dizziness or chest pain occur. 2. Type 2 Diabetes Mellitus The patient's A1c level is 6.2%, indicating good glycemic control. He is under regular follow-up with his configuration management consultant every three months. 3. Vitamin D Deficiency The patient's vitamin D level is slightly below normal at 28.9 ng/mL. No specific treatment was discussed during this visit. 4. Obstructive Sleep Apnea The patient is compliant with CPAP therapy and reports no issues. During the visit, we discussed the patient's current blood pressure management and the importance of maintaining medication adherence. We also reviewed the patient's recent A1c level and vitamin D status, noting that no immediate changes are necessary. Follow-up with the configuration management consultant will continue every three months, and a six-month follow-up with our office is planned unless new symptoms arise. Patient Instructions: - Continue taking blood pressure medication as prescribed. - Follow up with your configuration management consultant every three months. - Schedule a follow-up visit with our office in six months unless you experience dizziness or chest pain.
[2025-04-07 15:29] VITALS: BP 114/68; PULSE 80; RESP 16; TEMP 36.5; O2SAT 96; BMI 45.3
--- OUTSIDE RECORDS SUMMARY | 2025-04-07 15:30 | XMS_ITS | Continuity of Care Document ---
Author Organization [facility] [address] [place] [address] Phone [phone] Care Team Providers Care Leisure Studies Professor Name Role Phone Kanu Montejo M.D. Care Team Information Recei shiva [phone] Problems Active Problems Provider Date Type 2 diabetes mellitus Gonzalo Varner M.D. O nset: 05/20/2022 Essential hypertension Gonzalo Varner M.D. Ons et: 05/20/2022 Hypercholesterolemia Gonzalo Varner M.D. Onset : 05/20/2022 Obesity Gonzalo Varner M.D. Onset: 08/2022 Gastroesophageal reflux disease Gonzalo Varner M.D. Onset: 05/20/2022 Social History Type Date Description Comments Sex Male Sex Unknown Tobacco Use Start: Unknown End: Unknown Quit 1994 Smoking Status Reviewed: 04/21/23 Quit 1994 ETOH Use Occasionally consumes alcoho l Allergies and adverse reactions Description No Known Drug Allergies Medications Active Medications SIG Qnty Indications Order ing Provider Date Mounjaro7.5mg/0.5ML Solution Auto-Inject Inject 7.5 MG Weekly Subcutaneously 6ml E11.9 Lilian Hall, ROJELIO 03/25/2025 I10 E78.00 Fluticasone Fkkakrenfp76ssf/Act Suspension instill 1 sprays (100mcg) in each nostril once daily in the morning (for allergies) 16units Gonzalo Varner M.D. 05/20/2022 Flomax0.4mg Capsules 1 every day Peng Varner M.D. 05/20/2022 Metformin [id number] Tablets One Full Tab let In The Morning And Half Tab In The Afternoon 60tabs Lilianconnor Hall, ROJELIO Nlrakhvsto26js Tablets 1 by mouth every day Kanu Montejo M.D. Metoprolol Succinate ER25mg Tablets ER 24HR Take 1 Tablet By Mouth Every Day Donaldo Aguilar MD Atorvastatin Wpbdhpr82hs Tablets Take 1 Tablet By Mouth Every Day Donaldo Aguilar MD Pantoprazole Yglpvt87bk Tablets DR Take 1 Tablet By Mouth Every Day Kanu Montejo M.D. History Medications Zwhkxvgc6cz/0.5ML Solution Auto-Inject Inject 5 MG Weekly Subcutaneously 2units E11.9 Narcisa Huston M.D. 01/27/2025 - 03/25/2025 I10 E78.00 Mounjaro2.5mg/0.5ML Solution Auto-Inject inject 2.5 mg weekly subcutaneously 2ml E11.9 Narcisa Huston M.D. 12/16/2024 - 01/27/2025 I10 E78.00 Vital Signs Date Vital Result Comment 03/25/2025 3:29pm BP Systolic 140 mmHg BP Diastolic 80 mmHg Heart Rate 82 /min Height 70 inches 5'10 Weight 309.00 lb BMI (Body Mass Index) 44.3 kg/m2 Results Test Acquired Date Facility Test Result H/L Range N ote Hemoglobin A1c 03/25/2025 Inhouse Hemoglobin A1c 6.4 Glucose Fingerstick 03/25/2025 Inhouse Glucose Fingerstick 188 Glucose Fingerstick 12/16/2024 Inhouse Glucose Fingerstick 118 [...] Date Location Provider Dx Diagnosis Office Visit 03/25/2025 3:30p Main Office Lilian Hall CNP E11.9 Type 2 diabetes mellitus without complications E78.00 Pure hypercholestero lemia, unspecified I10 Essential (primary) hypertension E66.9 Obesity, unspecified Z68.41 Body mass index [BMI ] 40.0-44.9, adult Assessments Date Code Description Provider 03/25/2025 E11.9 Type 2 diabetes mellitus without complications Lilian Hall CNP 03/25/2025 E78.00 Hypercholesterolemia Lilian Hall CNP 03/25/2025 I10 Essential (primary) hyperten levar Lilian Hall CNP 03/25/2025 E66.9 Obesity, unspecified Lilian Hall CNP 03/25/2025 Z68.41 Body mass index [BMI] 40.0-4 4.9, adult Lilian Hall CNP Plan of Treatment Future Appointment(s):* 06/28/2025 3:30 pm - Lilian Hall CNP at Main Office 12/16/2024 - MARY Iqbal* E11.9 Type 2 diabetes mellitus without complications * E78.00 Hypercholesterolemia * I10 Essential (primary) hypertension * E66.9 Obesity, unspecified * Z68.41 Body mass index [BMI] 40.0-44.9, adult* New Medication:* Mounjaro 2.5 mg/0.5ML Functional Status Description No Information Available Mental Status Description No Information Available Referrals Description No Information Available
--- OUTSIDE RECORDS SUMMARY | 2025-04-07 15:31 | XMS_ITS ---
Author Name [facility] Organization Unknown Care Team Organization Name Specialty Phone Email Start Date End [facility] 07/23/2024
--- OUTSIDE RECORDS SUMMARY | 2025-04-07 15:31 | XMS_ITS | Clinical Summary ---
Author Organization [facility] Address [address] [id number] Phone Care Team Providers Care Psychologist Personnel Name Role Phone Kanu Montejo Primary Care Provider [phone] Allergies No known active allergies Medications pantoprazole (PROTONIX) 40 MG tablet Take 40 mg by mouth daily. Active lisinopril (PRINIVIL,ZESTRI L) 10 MG tablet Take 10 mg by mouth daily. Active metFORMIN (FORTAMET) 1000 MG ([facility]) 24 hr tablet Take 1,000 mg by mouth daily with dinner. Active atorvastatin (LIPITOR) 10 MG tablet Take 10 mg by mouth daily. Active Active Problems No known active problems Social History Tobacco Use Types Packs/Day Years Used Date Smoking Tobacco: Never Smokeless Tobacco: Never Alcohol Use Standard Drinks/Week Comments Yes 0 (1 standard drink = 0.6 oz pur e alcohol) social Education Answer Date Recorded Are you interested in more education? Not on earline e 01/03/2023 Are you concerned about learning? Not on file 01/03/2023 No 01/03/2023 No 01/03/2023 Digital Access Answer Date Recorded No 02/01/2023 No 02/01/2023 No 02/01/2023 Reliable internet access at home? Not on file 02/01/2023 Device with a working camera? Not on file Sex and Gender Information Value Date Recorded Sex Assigned at Not on file Legal Sex Male 9:33 PM EDT Gender Identity Not on file Sexual Orientation Not on file Last Filed Vital Signs Vital Sign Reading Time Taken Comments Blood Pressure - - Pulse - - Temperature - - Respiratory Rate - - Oxygen Saturation - - Inhaled Oxygen Concentration - - Weight 142.9 kg (315 lb) 09/14/2019 3:34 PM EST Height 177.8 cm (5' 10 ) 09/14/2019 3:34 PM EST Body Mass Index 45.2 09/14/2019 3:34 PM EST Plan of Treatment Health Maintenance Due Date Last Done Comments Adult Td,Tdap Booster 1972 CREATININE LEVEL 1972 LIPID PANEL 1972 POTASSIUM LEVEL 1972 DEPRESSION SCREENING 1984 HEPATITIS C SCREENING 02/19/1990 HIV ONE-TIME SCREENING (18-6 5 YEARS) 02/19/1990 COLOGUARD 02/19/2017 COLONOSCOPY 02/19/2017 COLORECTAL CANCER SCREENING 02/19/2017 FIT TEST 02/19/2017 FOBT 02/19/2017 SIGMOIDOSCOPY 02/19/2017 VIRTUAL COLONOSCOPY 02/19/2017 PNEUMOCOCCAL VACCINES (50+ y ears) (1 of 1 - PCV) 02/19/2022 ZOSTER VACCINES (1 of 2) 02/19/2022 COVID-19 VACCINE (2 - 2023-2 5 season) 2024 12/03/2020 SMOKING STATUS SCREENING (On ce After 26 Yrs) Completed 09/14/2019 HEPATITIS A VACCINES Aged Out No long er eligible based on patient's age to complete this topic HIB VACCINES Aged Out No longer eligi ble based on patient's age to complete this topic MENINGOCOCCAL VACCINES (ACWY) Aged Out No longer eligible based on patient's age to complete this topic MENINGOCOCCAL VACCINES (B) Aged Out N o longer eligible based on patient's age to complete this topic Medical Devices Not on file Insurance OUT [facility] PPO BLUE CROSS OUT OF STATE PPO BLUE CROSS OUT OF STATE PPO BLUE CROSS OUT OF STATE PPO BLUE CROSS OUT OF STATE PPO BLUE CROSS OUT OF STATE PPO BLUE CROSS OUT OF STATE PPO BLUE CROSS OUT OF STATE PPO BLUE CROSS OUT OF STATE PPO Member Subscriber Plan / Payer ( fective 2019-Present) Name:Danny King Relation to Subscriber:Self Name:Danny King Payer ID:[id number] (NAIC) Type:PPO Address: [facility] [id number] [id number] Care Teams Psychologist Personnel Relationship Specialty Start Date End Date Kanu Montejo DO [address] [place] [id number] PCP - General Internal Medicine 08/16/19 Additional Source Comments The information contained in this document represents components of the legal health record. It is not the complete legal health record.[facility]
== END 2025-04-07 15:56 | disposition home or self-care (01) ==
LOC: HO.HMCSH 15:26
PROVIDERS: PCP Internal Medicine; Visit Provider Physician Assistant Medical
DX: I10 Essential (primary) hypertension (principal); E11.9 Type 2 diabetes mellitus without complications; E55.9 Vitamin D deficiency, unspecified; G47.33 Obstructive sleep apnea (adult) (pediatric)

== ENCOUNTER → 2025-04-07 15:25 | Outpatient (BNVA) | payer BC, SELFPAY | PROVIDERS: PCP Internal Medicine; Visit Provider Physician Assistant Medical | DX: I10 Essential (primary) hypertension (principal); E11.9 Type 2 diabetes mellitus without complications; E55.9 Vitamin D deficiency, unspecified; G47.33 Obstructive sleep apnea (adult) (pediatric); Z99.89 Dependence on other enabling machines and devices | CPT/HCPCS: 96127 ==

== ENCOUNTER 2025-07-26 15:37 | Outpatient (AMB) | payer BC, SELFPAY ==
[2025-07-26 15:46] VITALS: BP 110/62; PULSE 86; O2SAT 97; BMI 44.4
--- NOTE | 2025-07-26 15:46 | A.OFFVIS_ITS ---
Vital Signs 07/26/25 15:46 Height 5 ft 9.5 in Weight 305 lb 5.443 oz BMI 44.4 BP 110/62 Blood Pressure Location Lt brachial Position Sitting Pulse 86 Pulse Source Pulse Oximeter Pulse Oximetry (%) 97 Oxygen Delivery Method Room Air Intake Visit Reasons: Obstructive sleep apnea Intake Note: pt is here for follow up of JOHN,and is feeling good, Warning Analyst Required: No Emd Special Education Teacher: Emd Special Education Teacher offered & declined Allergies No Known Allergies Allergy (Verified 07/26/25 15:59) Medication List - Last Reconciled 07/26/25 by Nesha Smith MD atorvastatin 80 mg PO DAILY blood sugar diagnostic ([email or web address] Ultra Test strips) As directed cholecalciferol (vitamin D3) 1,250 mcg PO QWEEK fluticasone propionate 50 mcg/actuation 2 sprays intranasal DAILY PRN lisinopril 10 mg PO DAILY metformin 1,000 mg PO DAILY metoprolol succinate ER 50 mg PO DAILY pantoprazole 40 mg PO DAILY tamsulosin 0.4 mg PO DAILY tirzepatide (Mounjaro) 7.5 mg subcut QWEEK HPI HPI Obstructive sleep apnea: Details: 55 YEARS OLD GENTLEMAN WITH MORBID OBESITY AND OBSTRUCTIVE SLEEP APNEA IS HERE FOR FOLLOW-UP. HE IS USING CPAP VERY REGULARLY. ON SOME NIGHTS HE FALLS ASLEEP BEFORE HE HAS A CHANCE TO PUT ON THE CPAP. WHEN USING CPAP HE SLEEPS VERY GOOD AND WAKES UP REFRESHED. HE IS ALSO STARTING TO LOSE WEIGHT ON MOUNJARO THERAPY. HE IS VERY ENERGETIC AND STAYS ACTIVE. [facility] Medical History Elevated bilirubin Vitamin D deficiency Allergic rhinitis Diabetes mellitus HTN (hypertension) JOHN (obstructive sleep apnea) Morbid obesity Surgical History History of colonoscopy (~09/10/19) History of tonsillectomy History of ankle surgery History of nephrectomy, right S/P right rotator cuff repair Family History Father Enlarged heart COPD (chronic obstructive pulmonary disease) Pacemaker Cardiac defibrillator in place Brother SVT (supraventricular tachycardia) Mother Hypercholesteremia Social History Housing: House Alcohol intake: current Alcohol intake frequency: holidays/special occasions only Patient Tobacco Use Status: Former Tobacco user service: No Current occupational status: employed and retired 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 Cognitive needs: No Hearing needs: No Vision needs: Yes (reading glasses) Review of Systems Const All systems reviewed & are unremarkable except as noted in HPI and below Reports snoring Eyes Reports no additional complaints ENT Reports no additional complaints Card Denies chest pain, Denies irregular heart rhythm and Denies leg edema Resp Denies cough, Reports snoring and Denies wheezing GI Reports heartburn (GERD symptoms controlled with medicine) Reports other (Symptoms of BPH) Musc Reports no additional complaints Skin/Breast Reports system reviewed and no additional complaints, except as documented Neuro Reports no additional complaints Psych Reports no additional complaints Endo Reports no additional complaints Aller/Immun Denies wheezing Physical Exam Vital Signs: Last Vital Signs Pulse 86 07/26/25 15:46 BP 110/62 07/26/25 15:46 Pulse Ox 97 07/26/25 15:46 Oxygen Delivery Method Room Air 07/26/25 15:46 BMI result Body Mass Index 44.4 Const Other: Still grossly obese but has lost 30 lb since November of this year General: healthy appearing (Except for being overweight), comfortable, no acute distress, alert and awake Orientation/consciousness: patient oriented x3 HEENT Head: Yes normal to inspection General nose exam: No nasal polyps present and No nasal discharge present Face and sinus: Yes sinuses nontender and Yes other (Mild nasal congestion) Mouth: oropharynx normal Throat: No posterior oropharynx normal (Oropharynx is crowded, Mallampati class 4) Eyes General: appearance normal, both eyes and all related structures Neck Neck: Yes normal visual inspection, Yes no lymphadenopathy, Yes trachea midline, Yes no JVD and Yes other (Neck circumference 19 in) Thyroid: Thyroid normal Chest Chest palpation & inspection: normal inspection of the chest, normal palpation of entire chest wall and no tenderness Resp Effort & Inspection: normal respiratory effort Auscultation: clear to auscultation bilaterally, no crackles, no rhonchi and no wheezes Percussion: percussion normal Cardio Palpation: PMI not normal (Not palpable) Rate: regular rate Rhythm: regular rhythm Heart sounds: no gallops and no murmurs Peripheral pulses: Peripheral pulses 2+ throughout GI Palpation (GI): Soft to palpation, nontender, No hepatosplenomegaly present, no masses and Other GI palpation findings present (Abdomen is obese and protuberant) Auscultation: normal bowel sounds Back/Spine/Pelvis Thoracic/Lumbar Spine: thoracic and lumbar spine normal to inspection Skin General skin exam: no rashes or lesions noted Neuro General: patient oriented x3 and no focal motor deficits Cranial nerves: Yes CN's II-XII intact bilaterally Extrem General: Yes normal to inspection, Yes no clubbing, cyanosis or edema and Yes no calf tenderness Psych Appearance: grossly normal and well kempt Speech and movement: Normal speech and movement present Results Reviewed Results Reviewed: COMPLIANCE REPORT FOR THE LAST 30 NIGHTS IS REVIEWED. HE USED /30 NIGHTS AND MISSED USING ON 7 NIGHTS BECAUSE HE FELL ASLEEP BEFORE HE COULD PUT ON THE MASK. HE LOVES TO USE THE CPAP. SLEEP QUALITY IS DEFINITELY IMPROVED RESIDUAL AHI ONLY 0.1 Assessment & Plan Assessment & Plan (1) Morbid obesity: Comment: Chronically obese, runs in his family. Has not been in any weight management program. I discussed with him the need for losing more weight, He told me that he is trying to restrict his diet , and walking . He was on Trulicity injection for control of diabetes mellitus. Now it his changed to MOUNJARO injections, and hopefully would lose more weight. SO FAR HE HAS HAD ONLY 1 MOUNJARO INJECTIONS, HE HAS ALREADY LOST ABOUT 6 LB OF WEIGHT. Code(s): E66.01 - Morbid (severe) obesity due to excess calories Category: Medical Plan: COMMENDED FOR STARTING TO LOSE WEIGHT. CONTINUE TO WATCH THE DIET (2) Allergic rhinitis: Comment: Mild intermittent nasal congestion Code(s): J30.9 - Allergic rhinitis, unspecified Category: Medical Plan: USE FLONASE-52 SPRAY IN EACH NOSTRIL BUT ONLY P.R.N. (3) JOHN (obstructive sleep apnea): Comment: The diagnosis of obstructive sleep apnea was reconfirmed. He does use the CPAP device, with nasal mask, and pressure setting of 6-20 cm. ( using mostly 6.8 to 8.4 cms ) He is very compliant and happy about the use of CPAP. Compliance is good except that he misses on some nights, because he falls asleep before he has a chance to put on the CPAP mask Code(s): G47.33 - Obstructive sleep apnea (adult) (pediatric) Category: Medical Plan: HE IS VERY COMPLIANT AND BENEFITTING FROM THE USE OF CPAP. Advised to make sure that he puts on the CPAP mask before he falls asleep. Medications: Changed From metformin 1,000 mg PO BID 180 tabs 1RF 90 days To metformin 1,000 mg PO DAILY Coding Level of Care Code Est Pt Level 3 (76310) Diagnoses Morbid obesity E66.01 Allergic rhinitis J30.9 JOHN (obstructive sleep apnea) G47.33
== END 2025-07-26 16:01 | disposition home or self-care (01) ==
LOC: HO.HPS 15:37
PROVIDERS: PCP Internal Medicine; Visit Provider Internal Medicine
DX: E66.01 Morbid (severe) obesity due to excess calories (principal); J30.9 Allergic rhinitis, unspecified; G47.33 Obstructive sleep apnea (adult) (pediatric)
CPT/HCPCS: 99213

== ENCOUNTER → 2025-08-16 11:03 | Outpatient (BNVA) | payer OTHER, SELFPAY | PROVIDERS: PCP Physician Assistant Medical; Visit Provider Emergency Medicine | DX: S60.571A Other superficial bite of hand of right hand, initial encounter (principal); W54.0XXA Bitten by dog, initial encounter; E11.9 Type 2 diabetes mellitus without complications | CPT/HCPCS: 90715; 99202 ==

== ENCOUNTER → 2025-08-18 14:51 | Outpatient (BNVA) | payer OTHER, SELFPAY | PROVIDERS: PCP Physician Assistant Medical; Visit Provider Physician Assistant Medical | DX: S60.571A Other superficial bite of hand of right hand, initial encounter (principal); W54.0XXA Bitten by dog, initial encounter; E11.9 Type 2 diabetes mellitus without complications | CPT/HCPCS: 99213 ==

== ENCOUNTER → 2025-08-25 15:48 | Outpatient (BNVA) | payer OTHER, SELFPAY | PROVIDERS: PCP Physician Assistant Medical; Visit Provider Physician Assistant Medical | DX: S60.571A Other superficial bite of hand of right hand, initial encounter (principal); W54.0XXA Bitten by dog, initial encounter; E11.9 Type 2 diabetes mellitus without complications; Z02.79 Encounter for issue of other medical certificate | CPT/HCPCS: 99213 ==